=== PATIENT | female | born 1970 | race Caucasian/White ===

== ENCOUNTER → 2017-01-24 | Outpatient (CLI) | payer OTHER ==
[2015-07-06 22:50] VITALS: BP 127/73
[~2017-01-24] MED LIST: AMOX1TAB11 PO; CHOL100017 PO; OMEP20CA9 PO; TIZA4TAB PO
--- NOTE | 2017-01-24 09:40 | RAD ---
Right upper quadrant abdominal ultrasound History: Right upper quadrant pain radiating to the back. Nausea and vomiting. Comparison: None. Technique: Transabdominal ultrasound images are obtained. Findings: Visualized pancreas is unremarkable. Liver is increased in echogenicity. No focal hepatic masses are identified. Right hepatic lobe measures 12.2 cm in length. Gallbladder demonstrate presence of multiple gallstones with largest thought to measure 3.5 cm. Gallbladder wall appears at the upper limits of normal for size, follow-up to measure about 3 mm. No convincing pericholecystic fluid is identified. Common bile duct measures normally at 5 mm in diameter. The right kidney measures 9.6 cm in length and is without evidence of obstruction or stone. Visualized portions of the IVC have normal caliber. Impression: 1. Cholelithiasis. Gallbladder wall appears at the upper limits of normal for size, but no convincing pericholecystic fluid is identified. If there is concern for acute cholecystitis, nuclear medicine hepatobiliary scan could be performed. 2. Fatty liver disease.
== END | disposition home or self-care (01) ==
LOC: US 08:32
PROVIDERS: ATTEND Family Medicine
DX: K80.20 Calculus of gallbladder without cholecystitis without obstruction (principal); K76.0 Fatty (change of) liver, not elsewhere classified
CPT/HCPCS: 76705

== ENCOUNTER 2017-01-27 11:42 | Inpatient (IN) | payer OTHER ==
[~2017-01-27] VITALS: Ht 160 cm; Wt 81.6 kg
[~2017-01-27 11:42] MED LIST changes: -AMOX1TAB11 PO; -OMEP20CA9 PO; -TIZA4TAB PO
[2017-01-27] MEDS ORDERED: MORPHINE SULFATE 4 MG/ML DISP.SYRIN. IV ONE ×2 (12:30→14:15)
[2017-01-27] MEDS ORDERED: IV NORMAL SALINE 1000ML BAG 1,000 ML IV ONE (12:30)
[2017-01-27 12:46] LABS: BASO # 0.1 x10^3/uL (0.0-0.2); BASO % 1 % (0-3); EOS % 3 % (0-3); HEMATOCRIT 41.8 % (36.0-47.0); LYMPH # 2.3 x10^3/uL (1.0-4.8); LYMPH % 27 % (24-48); MEAN CORPUSCULAR HEMOGLOBIN 31 pg (25-35); MEAN CORPUSCULAR HGB CONC 34 g/dL (31-37); MEAN CORPUSCULAR VOLUME 92 fL (79-100); MONO % 6 % (0-9); NEUT % 63 % (31-73); PLATELET COUNT 262 x10^3/uL (140-400); RED BLOOD COUNT 4.56 x10^6/uL (3.50-5.40); RED CELL DISTRIBUTION WIDTH 12.2 % (11.5-14.5); WHITE BLOOD COUNT 8.7 x10^3/uL (4.0-11.0)
[2017-01-27 13:31] LABS: CALCIUM 8.9 mg/dL (8.5-10.1); CREATININE 0.8 mg/dL (0.6-1.0); GFR 77.6; POTASSIUM 3.8 mmol/L (3.5-5.1)
[2017-01-27 13:37] LABS: ALBUMIN 3.5 g/dL (3.4-5.0); ALBUMIN/GLOBULIN RATIO 0.7 (1.0-1.7); TOTAL BILIRUBIN 0.3 mg/dL (0.2-1.0); TOTAL PROTEIN 8.2 g/dL (6.4-8.2)
--- NOTE | 2017-01-27 14:22 | ED.ADGEN ---
Past Medical History Past Medical History: No Pertinent History Past Surgical History: Tubal ligation Alcohol Use: Occasionally Drug Use: None Adult General Chief Complaint Chief Complaint: FLANK PAIN HPI HPI Patient is a 46 year old female presents with intermittent right upper quadrant pain 3 weeks. Pain is been continuous for the past 3 days. Pain radiates to back and is currently rated moderate to severe. Back pain is worse 20 minutes after eating. Patient denies nausea vomiting blood in stools or dark tarry stools. Patient had outpatient gallbladder ultrasound performed 2 days ago which showed large gallstones, without evidence of acute cholecystitis. Patient is also currently being treated on Augmentin for urinary tract infection per her PCP. She takes antacids as well for history of peptic ulcer disease. Patient is currently awaiting referral to a general surgeon. She was instructed by her PCP to go to the emergency department due to her poorly controlled pain. Patient has had prior hysterectomy. Review of Systems Review of Systems View symptoms as per history of present illness. All other review symptoms are negative. Current Medications Current Medications Current Medications Medications (Trade) Dose Ordered Sig/Zulma Start Time Stop Time Status Last Admin Dose Admin Morphine Sulfate 4 mg 4 mg 1X ONCE 01/27/17 14:15 01/27/17 14:16 DC Piperacillin Sod/ Tazobactam Sod/ Sodium Chloride (Zosyn/Iv Sodium Chloride 0.9% 50ml) 50 ml @ 100 mls/hr 1X ONCE 01/27/17 14:30 01/27/17 14:59 Sodium Chloride (Iv Sodium Chloride 0.9% 1000ml Bag) 1,000 ml @ 1,000 mls/hr 1X ONCE 01/27/17 12:30 01/27/17 13:29 DC 01/27/17 12:50 1,000 MLS/HR Allergies Allergies Allergies Coded Allergies Type Severity Reaction Last Updated Verified Sulfa (Sulfonamide Antibiotics) Allergy Intermediate 02/24/14 No Physical Exam Physical Exam Constitutional: Well developed, well nourished, moderate discomfort secondary to pain. HENT: Normocephalic, atraumatic, bilateral external ears normal. Eyes: PERRLA, EOMI, conjunctiva normal. Neck: Normal range of motion. Cardiovascular:Heart rate regular rhythm, no murmur. Lungs & Thorax: Bilateral breath sounds clear to auscultation. Abdomen: Bowel sounds normal, soft, upper quadrant pain, tenderness, positive Otero sign. McBurney's sign. Skin: Warm, dry, no erythema, no rash. Back: No tenderness, no CVA tenderness. Extremities: No tenderness, no cyanosis, no clubbing, ROM intact, no edema. Neurologic: Alert and oriented X 3, normal motor function, normal sensory function, no focal deficits noted. Psychologic: Affect normal, judgement normal, mood normal. Current Patient Data Vital Signs Vital Signs Date Time Temp Pulse Resp B/P Pulse Ox O2 Delivery O2 Flow Rate FiO2 01/27/17 12:58 98.1 71 16 115/71 99 Room Air 98.1 Lab Values Laboratory Tests Test 01/27/17 11:17 01/27/17 12:25 POC Urine HCG, Qualitative Hcg negative (Negative) White Blood Count 8.7x10^3/uL (4.0-11.0) Red Blood Count 4.56x10^6/uL (3.50-5.40) Hemoglobin 14.0g/dL (12.0-15.5) Hematocrit 41.8% (36.0-47.0) Mean Corpuscular Volume 92fL (79-100) Mean Corpuscular Hemoglobin 31pg (25-35) Mean Corpuscular Hemoglobin Concent 34g/dL (31-37) Red Cell Distribution Width 12.2% (11.5-14.5) Platelet Count 262x10^3/uL (140-400) Neutrophils (%) (Auto) 63% (31-73) Lymphocytes (%) (Auto) 27% (24-48) Monocytes (%) (Auto) 6% (0-9) Eosinophils (%) (Auto) 3% (0-3) Basophils (%) (Auto) 1% (0-3) Neutrophils # (Auto) 5.5x10^3uL (1.8-7.7) Lymphocytes # (Auto) 2.3x10^3/uL (1.0-4.8) Monocytes # (Auto) 0.5x10^3/uL (0.0-1.1) Eosinophils # (Auto) 0.2x10^3/uL (0.0-0.7) Basophils # (Auto) 0.1x10^3/uL (0.0-0.2) Sodium Level 137mmol/L (136-145) Potassium Level 3.8mmol/L (3.5-5.1) Chloride Level 105mmol/L (98-107) Carbon Dioxide Level 24mmol/L (21-32) Anion Gap 8 (6-14) Blood Urea Nitrogen 13mg/dL (7-20) Creatinine 0.8mg/dL (0.6-1.0) Estimated GFR (Cockcroft-Gault) 77.6 BUN/Creatinine Ratio 16 (6-20) Glucose Level 93mg/dL (70-99) Calcium Level 8.9mg/dL (8.5-10.1) Total Bilirubin 0.3mg/dL (0.2-1.0) Aspartate Amino Transferase (AST) 18U/L (15-37) Alanine Aminotransferase (ALT) 27U/L (14-59) Alkaline Phosphatase 66U/L (46-116) Total Protein 8.2g/dL (6.4-8.2) Albumin 3.5g/dL (3.4-5.0) Albumin/Globulin Ratio 0.7 (1.0-1.7) L Lipase 181U/L (73-393) Laboratory Tests 01/27/17 12:25 Laboratory Tests 01/27/17 12:25 EKG EKG [] Radiology/Procedures Radiology/Procedures [03/27/17 Gallbladder ultrasound reviewed: Large gallstones present without acute findings of cholecystitis] Impressions: Right upper quadrant pain consistent with biliary colic Course & Med Decision Making Course & Med Decision Making Pertinent Labs and Imaging studies reviewed. (See chart for details) [Dr. Babb to admit. Dr. Juarez consult.. Recommendations are for IV antibiotics and to keep patient nothing by mouth after midnight,] Dragon Disclaimer Dragon Disclaimer This electronic medical record was generated, in whole or in part, using a voice recognition dictation system. RICKY DAS DO January 27, 2017 14:22
[2017-01-27] MEDS ORDERED: MORPHINE SULFATE 2 MG/ML DISP.SYRIN. IV PRN (14:30)
[2017-01-27] MEDS ORDERED: PIPERACILLIN/TAZOBACTAM 3.375 GM in IV NORMAL SALINE 50ML 50 ML IV ONE (14:30)
[2017-01-27] MEDS ORDERED: ONDANSETRON PF 4 MG/2 ML VIAL. IV PRN (14:30)
[2017-01-27 16:04] LABS: BILIRUBIN,URINE NEGATIVE (NEG); GLUCOSE,URINE NEGATIVE (NEG); NITRITE,URINE NEGATIVE (NEG); PH,URINE 5.5; PROTEIN,URINE NEGATIVE (NEG-TRACE); UROBILINOGEN,URINE 0.2 mg/dL (0.2 mg/dL)
[2017-01-27 16:07] VITALS: BP 125/70
[2017-01-27 16:08] VITALS: BP 125/70
[2017-01-27] MEDS ORDERED: OMEP20CA9 PO (16:14)
[2017-01-27] MEDS ORDERED: AMOX1TAB11 PO (16:15)
[2017-01-27] MEDS ORDERED: TIZA4TAB PO (16:17)
[2017-01-27 16:27] LABS: BACTERIA,URINE 0 /HPF (0-FEW); SQUAMOUS EPITHELIAL CELL,UR OCC /LPF
--- NOTE | 2017-01-27 18:14 | ACF ---
Admission Forms Criteria ABDOMINAL PAIN Clinical Indications for Admission to Inpatient Care (Place 'X' for any and all applicable criteria): Admission is indicated for ANY ONE of the following(1)(2)(3)(4)(5): [X]I. Inpatient admission required rather than observation care (Also use Abdominal Pain: Observation Care, as appropriate) because of ANY ONE of the following: [ ]a) Severe pain requiring acute inpatient management [X]b) Identification of etiology/finding that requires inpatient care (eg, aortic dissection, free air) [ ]c) Absent bowel sounds with complete ileus(6) [ ]d) Suspected toxic megacolon [ ]e) Severe electrolyte abnormalities requiring inpatient care [ ]f) High fever or infection requiring inpatient admission as indicated by ANY ONE of following(7)(8): [ ] i) Appropriate outpatient or observational care antimicrobial treatment unavailable, not effective, or not feasible [ ] ii) Documented bacteremia [ ] iii) Temperature > 104.9 degrees F (oral) [ ] iv) T >103.1 F (oral) or < 96.8 F(rectal) that does not respond to all emergency treatment measures [ ]g) Signs of intestinal obstruction [B] [ ]h) Hemodynamic instability [ ]i) IV fluid to replace significant ongoing losses (greater than 3 L/m2 per day) (12)(13) [ ]j) Percutaneous or open drainage (eg, abscess, biliary tract ) procedures [ ]k) Parenteral nutrition regimen that must be implemented on inpatient basis [ ]l) Other condition,treatment or monitoring requiring inpatient admission. [ ]II. Peritoneal signs present [ ]III. Surgery needed that cannot be performed on an ambulatory basis. [ ]IV. Evaluation requires patient to not eat or drink for extended period ( eg, more than 24 hours). [ ]V. Contraindications and/or Inappropriate clinical situations for Observational Care in patients with abdominal pain, when ANY ONE of the following is required: [ ]a) Thorough evaluation is required to prevent catastrophic events due to delays in diagnosing (e.g.Mesenteric ischemia) 1,3 [ ]b) Patient with severe pathology or with chronic symptoms unlikely to improve in the ED stay (3) [ ]. General contraindications and/or Inappropriate clinical situations for Observational Care in patients with abdominal pain, when ANY ONE of the following is required: [ ]a) Prediction of prolongation of LOS based on ANY ONE of the following may be considered as a contraindication for observational care 2, 3, 4, 5, 6, 7, 8, 9, 10, 11 [ ]i) Age > 65 yrs. [ ]ii) Patient arriving by ambulance [ ]iii) Patient with high acuity [ ]iv) Patient requiring vital sign monitoring [ ]v) Patient on IV medication [ ]b) Systolic blood pressures 180mmHg 3,12 [ ]c) Patient with altered mental status including delirium and other alteration of consciousness, (3) [ ]d) Patient whose discharge disposition will be to a senior care home or rehabilitation home should not be managed in Emergency Department Observation Unit. CMS rule requires 3 days hospital stay before such placement.3,13 [ ]e) Patient with failure to thrive due to broad array of etiologies 3,16,17 [ ]f) Inability to ambulate 3,14 Extended stay beyond goal length of stay may be needed for(2)(3): [ ]a) Persistent abdominal pain with suspected intra-abdominal process [ ]b) Diagnosed condition requiring continued stay (e.g., pancreatitis, complicated diverticulitis) [ ]c) Surgery (e.g., colectomy) The original [facility] content created by [employer] has been revised. The portions of the content which have been revised are identified through the use of italic text or in bold, and [facility] has neither reviewed nor approved the modified material.All other unmodified content is copyright [facility]. Please see references footnoted in the original [facility] [employer] edition 2016 Admission Criteria Met?: Yes CHAMP COSME January 27, 2017 18:13
[2017-01-27] MEDS: IV NORMAL SALINE 1000ML BAG 1,000 ML IV SCH ×2 (18:35→22:23)
[2017-01-27 19:05] VITALS: BP 100/68
[2017-01-27 23:05] VITALS: BP 117/79
[2017-01-28] VITALS (12 sets, daily range): BP systolic 100–127; BP diastolic 62–86
[2017-01-28] MEDS: IV NORMAL SALINE 1000ML BAG 1,000 ML IV SCH (03:30)
[2017-01-28] MEDS ORDERED: IOHEXOL 300 MG/ML 50 ML VIAL. ONE (06:53)
[2017-01-28] MEDS ORDERED: BUPIVACAINE-EPI 0.25%-1:200000 MPF 30 ML VIAL. ONE (06:53)
[2017-01-28] MEDS ORDERED: SURGICEL HEMOSTAT 4X8 EACH. ONE (06:53)
[2017-01-28] MEDS ORDERED: PROCHLORPERAZINE 10 MG/2 ML VIAL. IV PRN (07:00)
[2017-01-28] MEDS ORDERED: fentaNYL PF VIAL 100 MCG/2 ML VIAL IV PRN (07:00)
[2017-01-28] MEDS ORDERED: MORPHINE SULFATE 2 MG/ML DISP.SYRIN. IV PRN (07:00)
[2017-01-28] MEDS ORDERED: HYDROmorphone 2 MG/ML VIAL IV PRN (07:00)
[2017-01-28] MEDS ORDERED: IV RINGERS,LACTATED 1000ML 1,000 ML IV SCH (07:00)
[2017-01-28] MEDS ORDERED: LIDOCAINE 1% 1 ML SYRINGE. ID PRN (07:00)
[2017-01-28] MEDS ORDERED: ONDANSETRON PF 4 MG/2 ML VIAL. IV PRN (07:00)
--- NOTE | 2017-01-28 08:43 | PDOC1 ---
History and Physical Date of Admission Date of Admission DATE: 01/28/17 TIME: 08:25 Identification/Chief Complaint Chief Complaint abdominal pain, recently found to have gallstones Problems: Source Source: Patient History of Present Illness History of Present Illness several week history of epigastric and upper quadrant abdominal pain, came to office a week ago and exam consistent with gallbladder etiology, ultrasound ordered but not done until Wednesday 01/24 which confirmed gallstones but did not confirm acute cholecystitis, surgical referral made along with PIPIDA scan but she presented to ER yesterday with pain and admitted with acute /chronic cholecystitis for surgery. She was also diagnosed with a UTI and is on antibiotics Past Medical History Cardiovascular: No pertinent hx Pulmonary: No pertinent hx GI: Constipation, GERD Heme/Onc: No pertinent hx Hepatobiliary: No pertinent hx Psych: Depression Musculoskeletal: No pain Rheumatologic: No pertinent hx Infectious disease: No pertinent hx ENT: Other (cleft palate repair) Renal/: No pertinent hx Endocrine: No pertinent hx Dermatology: No pertinent hx Grav: 2 Para: 2 Past Surgical History Past Surgical History: Hysterectomy, Other (cleft palate repair, tubes in ears) Social History Smoke: No ALCOHOL: rare Drugs: None Current Problem List Problem List Problems Medical Problems: (1) Abdominal pain Status: Acute (2) Biliary colic Status: Acute (3) Right upper quadrant abdominal pain Status: Acute Problems: Current Medications Current Medications Current Medications Sodium Chloride (Iv Sodium Chloride 0.9% 1000ml Bag) 1,000 ml @ 1,000 mls/hr 1X ONCE IV Last administered on 01/27/17 12:50; Start 01/27/17 at 12:30; Stop 01/27/17 at 13:29; Status DC Morphine Sulfate 4 mg 1X ONCE IV Last administered on 01/27/17 12:50; Start at 12:30; Stop 01/27/17 at 12:33; Status DC Morphine Sulfate 4 mg 4 mg 1X ONCE IV Last administered on 01/27/17 14:28; Start 01/27/17 at 14:15; Stop 01/27/17 at 14:16; Status DC Piperacillin Sod/ Tazobactam Sod/ Sodium Chloride (Zosyn/Iv Sodium Chloride 0.9 % 50ml) 50 ml @ 100 mls/hr 1X ONCE IV Last administered on 01/27/17 14:28; Start 01/27/17 at 14:30; Stop 01/27/17 at 14:59; Status DC Ondansetron HCl (Zofran) 4 mg PRN Q8HRS PRN IV NAUSEA/VOMITING Last administered on 01/28/17 00:35; Start 01/27/17 at 14:30; Stop 01/28/17 at 14:29 Morphine Sulfate 2 mg 2 mg PRN Q2HR PRN IV PAIN Last administered on 01/27/17 18:35; Start 01/27/17 at 14:30; Stop 01/28/17 at 14:29 Sodium Chloride (Iv Sodium Chloride 0.9% 1000ml Bag) 1,000 ml @ 125 mls/hr Q8H IV Last administered on 01/28/17 03:30; Start 01/27/17 at 14:23; Stop 01/28/17 at 14:22 Ondansetron HCl (Zofran) 4 mg PRN Q6HRS PRN IV NAUSEA/VOMITING; Start 01/28/17 at 07:00; Stop 01/29/17 at 06:59 Fentanyl Citrate (Fentanyl 2ml Vial) 25 mcg PRN Q5MIN PRN IV MILD PAIN; Start 01/28/17 at 07:00; Stop 01/29/17 at 06:59 Fentanyl Citrate (Fentanyl 2ml Vial) 50 mcg PRN Q5MIN PRN IV MODERATE PAIN; Start 01/28/17 at 07:00; Stop 01/29/17 at 06:59 Morphine Sulfate 1 mg 1 mg PRN Q10MIN PRN IV SEVERE PAIN; Start 01/28/17 at 07: 00; Stop 01/29/17 at 06:59 Lactated Ringer's (Iv Lactated Ringers) 1,000 ml @ 0 mls/hr Q0M IV ; Start 01/28 at 07:00; Stop 01/28/17 at 18:59 Lidocaine HCl 2 ml PRN 1X PRN ID PRIOR TO IV START; Start 01/28/17 at 07:00; Stop 01/29/17 at 06:59 Hydromorphone HCl (Dilaudid) 0.5 mg PRN Q10MIN PRN IV SEV PAIN, Second choice; Start 01/28/17 at 07:00; Stop 01/29/17 at 06:59 Prochlorperazine Edisylate (Compazine) 5 mg PACU PRN PRN IV NAUSEA, MRX1; Start 01/28/17 at 07:00; Stop 01/29/17 at 06:59 Cellulose 1 each STK-MED ONCE .ROUTE ; Start 01/28/17 at 06:53; Stop 01/28/17 at 06:54; Status DC Iohexol (Omnipaque 300 Mg/ml) 50 ml STK-MED ONCE .ROUTE ; Start 01/28/17 at 06:53 ; Stop 01/28/17 at 06:54; Status DC Bupivacaine HCl/ Epinephrine Bitart (Sensorcaine-Epi 0.25%-1:693256 Mpf) 30 ml STK-MED ONCE .ROUTE ; Start 01/28/17 at 06:53; Stop 01/28/17 at 06:54; Status DC Active Scripts Active Reported Tizanidine Hcl 4 Mg Tablet 1 Tab PO QHS Amox Tr-K Clv 875-125 Mg Tab (Amoxicillin/Potassium Clav) 1 Each Tablet 1 Tab PO BID Omeprazole 20 Mg Capsule.dr 1 Cap PO DAILY Vitamin D (Cholecalciferol (Vitamin D3)) 10,000 Unit Capsule 50,000 Unit PO DAILY Allergies Allergies: Coded Allergies: Sulfa (Sulfonamide Antibiotics) (Unverified Allergy, Intermediate, 02/24/14 ) ROS General: No: Fatigue, Malaise, Night Sweats PSYCHOLOGICAL ROS: YES: Anxiety, Depression Eyes: No Blurry vision, No Decreased vision, No Double vision, No Dry eyes, No Excessive tearing, No Eye Pain, No Itchy Eyes, No Loss of vision, No Photophobia , No Scotomata, No Uses contacts, No Uses glasses HEENT: YES: Heacaches, Nasal congestion ALLERGY AND IMMUNOLOGY: No: Hives, Insect Bite Sensitivity, Itchy/Watery Eyes, Nasal Congestion, Post Nasal Drip, Seasonal Allergies Hematological and Lymphatic: No: Bleeding Problems, Blood Clots, Blood Transfusions, Brusing, Night Sweats, Pallor, Swollen Lymph Nodes ENDOCRINE: No: Breast Changes, Galactorrhea, Hair Pattern Changes, Hot Flashes , Malaise/lethargy, Mood Swings, Palpitations, Polydipsia/polyuria, Skin Changes , Temperature Intolerance, Unexpected Weight Changes Breast: No New/Changing Breast Lumps, No Nipple changes, No Nipple discharge Respiratory: No: Cough, Hemoptysis, Orthopnea, Pleuritic Pain, SOB with excertion, Shortness of breath, Sputum Changes, Stridor, Tachypnea, Wheezing Cardiovascular: No Chest Pain, No Edema, No Lt Headedness, No Orthopnea, No Palpitations, No Paroxysmal Noc. Dyspnea Musculoskeletal: No Gait Disturbance, No Joint Pain, No Joint Stiffness, No Joint Swelling, No Muscle Pain, No Muscular Weakness Neurological: No Behavorial Changes, No Bowel/Bladder ControlChng, No Confusion , No Dizziness, No Gait Disturbance, No Headaches, No Impaired Coord/balance, No Memory Loss, No Numbness/Tingling, No Seizures, No Speech Problems, No Tremors, No Visual Changes, No Weakness Skin: No Dry Skin, No Eczema, No Hair Changes, No Lumps, No Mole Changes, No Mottling, No Nail Changes, No Pruritus, No Rash, No Skin Lesion Changes Physical Exam General: Alert, Oriented X3, Cooperative, mild distress HEENT: Atraumatic, EOMI, Mucous membr. moist/pink Lungs: Clear to auscultation Heart: RRR, no murmurs Abdomen: Soft, No hepatosplenomegaly, Other (ROQ tenderness, mild bloating) Extremities: No clubbing, No cyanosis, No edema Skin: No rashes Neuro: Normal speech Psych/Mental Status: Mental status NL, Mood NL Vitals Vitals Vital Signs Date Time Temp Pulse Resp B/P Pulse Ox O2 Delivery O2 Flow Rate FiO2 01/28/17 07:00 97.6 69 18 106/70 98 Room Air 97.6 Labs Labs Laboratory Tests Test 01/27/17 11:17 01/27/17 12:10 01/27/17 12:25 Bedside Urine HCG, Qualitative Hcg negative (Negative) Urine Color Yellow Urine Clarity Clear Urine pH 5.5 Urine Specific [place] 1.020 Urine Protein Negativemg/dL (NEG-TRACE) Urine Glucose (UA) Negativemg/dL (NEG) Urine Ketones (Stick) Negativemg/dL (NEG) Urine Blood Small (NEG) Urine Nitrite Negative (NEG) Urine Bilirubin Negative (NEG) Urine Urobilinogen Dipstick 0.2mg/dL (0.2 mg/dL) Urine Leukocyte Esterase Trace (NEG) Urine RBC 1-2/HPF (0-2) Urine WBC 1-4/HPF (0-4) Urine Squamous Epithelial Cells Occ/LPF Urine Amorphous Sediment Present/HPF Urine Bacteria 0/HPF (0-FEW) Urine Mucus Slight/LPF White Blood Count 8.7x10^3/uL (4.0-11.0) Red Blood Count 4.56x10^6/uL (3.50-5.40) Hemoglobin 14.0g/dL (12.0-15.5) Hematocrit 41.8% (36.0-47.0) Mean Corpuscular Volume 92fL (79-100) Mean Corpuscular Hemoglobin 31pg (25-35) Mean Corpuscular Hemoglobin Concent 34g/dL (31-37) Red Cell Distribution Width 12.2% (11.5-14.5) Platelet Count 262x10^3/uL (140-400) Neutrophils (%) (Auto) 63% (31-73) Lymphocytes (%) (Auto) 27% (24-48) Monocytes (%) (Auto) 6% (0-9) Eosinophils (%) (Auto) 3% (0-3) Basophils (%) (Auto) 1% (0-3) Neutrophils # (Auto) 5.5x10^3uL (1.8-7.7) Lymphocytes # (Auto) 2.3x10^3/uL (1.0-4.8) Monocytes # (Auto) 0.5x10^3/uL (0.0-1.1) Eosinophils # (Auto) 0.2x10^3/uL (0.0-0.7) Basophils # (Auto) 0.1x10^3/uL (0.0-0.2) Sodium Level 137mmol/L (136-145) Potassium Level 3.8mmol/L (3.5-5.1) Chloride Level 105mmol/L (98-107) Carbon Dioxide Level 24mmol/L (21-32) Anion Gap 8 (6-14) Blood Urea Nitrogen 13mg/dL (7-20) Creatinine 0.8mg/dL (0.6-1.0) Estimated GFR (Cockcroft-Gault) 77.6 BUN/Creatinine Ratio 16 (6-20) Glucose Level 93mg/dL (70-99) Calcium Level 8.9mg/dL (8.5-10.1) Total Bilirubin 0.3mg/dL (0.2-1.0) Aspartate Amino Transf (AST/SGOT) 18U/L (15-37) Alanine Aminotransferase (ALT/SGPT) 27U/L (14-59) Alkaline Phosphatase 66U/L (46-116) Total Protein 8.2g/dL (6.4-8.2) Albumin 3.5g/dL (3.4-5.0) Albumin/Globulin Ratio 0.7 (1.0-1.7) Lipase 181U/L (73-393) Laboratory Tests Test 01/27/17 11:17 01/27/17 12:10 01/27/17 12:25 Bedside Urine HCG, Qualitative Hcg negative (Negative) Urine Color Yellow Urine Clarity Clear Urine pH 5.5 Urine Specific [place] 1.020 Urine Protein Negativemg/dL (NEG-TRACE) Urine Glucose (UA) Negativemg/dL (NEG) Urine Ketones (Stick) Negativemg/dL (NEG) Urine Blood Small (NEG) Urine Nitrite Negative (NEG) Urine Bilirubin Negative (NEG) Urine Urobilinogen Dipstick 0.2mg/dL (0.2 mg/dL) Urine Leukocyte Esterase Trace (NEG) Urine RBC 1-2/HPF (0-2) Urine WBC 1-4/HPF (0-4) Urine Squamous Epithelial Cells Occ/LPF Urine Amorphous Sediment Present/HPF Urine Bacteria 0/HPF (0-FEW) Urine Mucus Slight/LPF White Blood Count 8.7x10^3/uL (4.0-11.0) Red Blood Count 4.56x10^6/uL (3.50-5.40) Hemoglobin 14.0g/dL (12.0-15.5) Hematocrit 41.8% (36.0-47.0) Mean Corpuscular Volume 92fL (79-100) Mean Corpuscular Hemoglobin 31pg (25-35) Mean Corpuscular Hemoglobin Concent 34g/dL (31-37) Red Cell Distribution Width 12.2% (11.5-14.5) Platelet Count 262x10^3/uL (140-400) Neutrophils (%) (Auto) 63% (31-73) Lymphocytes (%) (Auto) 27% (24-48) Monocytes (%) (Auto) 6% (0-9) Eosinophils (%) (Auto) 3% (0-3) Basophils (%) (Auto) 1% (0-3) Neutrophils # (Auto) 5.5x10^3uL (1.8-7.7) Lymphocytes # (Auto) 2.3x10^3/uL (1.0-4.8) Monocytes # (Auto) 0.5x10^3/uL (0.0-1.1) Eosinophils # (Auto) 0.2x10^3/uL (0.0-0.7) Basophils # (Auto) 0.1x10^3/uL (0.0-0.2) Sodium Level 137mmol/L (136-145) Potassium Level 3.8mmol/L (3.5-5.1) Chloride Level 105mmol/L (98-107) Carbon Dioxide Level 24mmol/L (21-32) Anion Gap 8 (6-14) Blood Urea Nitrogen 13mg/dL (7-20) Creatinine 0.8mg/dL (0.6-1.0) Estimated GFR (Cockcroft-Gault) 77.6 BUN/Creatinine Ratio 16 (6-20) Glucose Level 93mg/dL (70-99) Calcium Level 8.9mg/dL (8.5-10.1) Total Bilirubin 0.3mg/dL (0.2-1.0) Aspartate Amino Transf (AST/SGOT) 18U/L (15-37) Alanine Aminotransferase (ALT/SGPT) 27U/L (14-59) Alkaline Phosphatase 66U/L (46-116) Total Protein 8.2g/dL (6.4-8.2) Albumin 3.5g/dL (3.4-5.0) Albumin/Globulin Ratio 0.7 (1.0-1.7) Lipase 181U/L (73-393) Images Images Impression: 1. Cholelithiasis. Gallbladder wall appears at the upper limits of normal for size, but no convincing pericholecystic fluid is identified. If there is concern for acute cholecystitis, nuclear medicine hepatobiliary scan could be performed. 2. Fatty liver disease. VTE Prophylaxis Ordered VTE Prophylaxis Devices: No VTE Pharmacological Prophylaxi: No Assessment/Plan Assessment/Plan acute cholecystitis, consent given for SHAN Boyd MD January 28, 2017 08:43
--- NOTE | 2017-01-28 08:48 | PDOC2 ---
CONSULT Date of Consult Date of Consult DATE: 01/28/17 TIME: 08:43 Reason for Consult Reason for Consult: Abd pain Referring Physician Referring Physician: Identification/Chief Complaint Chief Complaint Abdominal pain Source Source: Patient History of Present Illness Reason for Visit: 46 yo female with intermitent abdominal pain right side for several months. Most recently pain has been constant and sharp in the RUQ with nausea and worse after eating. Recent U/S showed gallstones. Denies any fever or vomiting. Past Medical History Cardiovascular: No pertinent hx Pulmonary: No pertinent hx GI: No pertinent hx Heme/Onc: No pertinent hx Hepatobiliary: Cholelithiasis Psych: No pertinent hx Rheumatologic: No pertinent hx Infectious disease: No pertinent hx ENT: No pertinent hx Renal/: No pertinent hx Endocrine: No pertinent hx Dermatology: No pertinent hx Past Surgical History Past Surgical History: Hysterectomy Family History Family History: No Significant Social History No ALCOHOL: none Drugs: None Lives: with Family Current Problem List Problem List Problems Medical Problems: (1) Abdominal pain Status: Acute (2) Biliary colic Status: Acute (3) Right upper quadrant abdominal pain Status: Acute Current Medications Current Medications Current Medications Sodium Chloride (Iv Sodium Chloride 0.9% 1000ml Bag) 1,000 ml @ 1,000 mls/hr 1X ONCE IV Last administered on 01/27/17 12:50; Start 01/27/17 at 12:30; Stop 01/27/17 at 13:29; Status DC Morphine Sulfate 4 mg 1X ONCE IV Last administered on 01/27/17 12:50; Start at 12:30; Stop 01/27/17 at 12:33; Status DC Morphine Sulfate 4 mg 4 mg 1X ONCE IV Last administered on 01/27/17 14:28; Start 01/27/17 at 14:15; Stop 01/27/17 at 14:16; Status DC Piperacillin Sod/ Tazobactam Sod/ Sodium Chloride (Zosyn/Iv Sodium Chloride 0.9 % 50ml) 50 ml @ 100 mls/hr 1X ONCE IV Last administered on 01/27/17 14:28; Start 01/27/17 at 14:30; Stop 01/27/17 at 14:59; Status DC Ondansetron HCl (Zofran) 4 mg PRN Q8HRS PRN IV NAUSEA/VOMITING Last administered on 01/28/17 00:35; Start 01/27/17 at 14:30; Stop 01/28/17 at 14:29 Morphine Sulfate 2 mg 2 mg PRN Q2HR PRN IV PAIN Last administered on 01/27/17 18:35; Start 01/27/17 at 14:30; Stop 01/28/17 at 14:29 Sodium Chloride (Iv Sodium Chloride 0.9% 1000ml Bag) 1,000 ml @ 125 mls/hr Q8H IV Last administered on 01/28/17 03:30; Start 01/27/17 at 14:23; Stop 01/28/17 at 14:22 Ondansetron HCl (Zofran) 4 mg PRN Q6HRS PRN IV NAUSEA/VOMITING; Start 01/28/17 at 07:00; Stop 01/29/17 at 06:59 Fentanyl Citrate (Fentanyl 2ml Vial) 25 mcg PRN Q5MIN PRN IV MILD PAIN; Start 01/28/17 at 07:00; Stop 01/29/17 at 06:59 Fentanyl Citrate (Fentanyl 2ml Vial) 50 mcg PRN Q5MIN PRN IV MODERATE PAIN; Start 01/28/17 at 07:00; Stop 01/29/17 at 06:59 Morphine Sulfate 1 mg 1 mg PRN Q10MIN PRN IV SEVERE PAIN; Start 01/28/17 at 07: 00; Stop 01/29/17 at 06:59 Lactated Ringer's (Iv Lactated Ringers) 1,000 ml @ 0 mls/hr Q0M IV ; Start 01/28 at 07:00; Stop 01/28/17 at 18:59 Lidocaine HCl 2 ml PRN 1X PRN ID PRIOR TO IV START; Start 01/28/17 at 07:00; Stop 01/29/17 at 06:59 Hydromorphone HCl (Dilaudid) 0.5 mg PRN Q10MIN PRN IV SEV PAIN, Second choice; Start 01/28/17 at 07:00; Stop 01/29/17 at 06:59 Prochlorperazine Edisylate (Compazine) 5 mg PACU PRN PRN IV NAUSEA, MRX1; Start 01/28/17 at 07:00; Stop 01/29/17 at 06:59 Cellulose 1 each STK-MED ONCE .ROUTE ; Start 01/28/17 at 06:53; Stop 01/28/17 at 06:54; Status DC Iohexol (Omnipaque 300 Mg/ml) 50 ml STK-MED ONCE .ROUTE ; Start 01/28/17 at 06:53 ; Stop 01/28/17 at 06:54; Status DC Bupivacaine HCl/ Epinephrine Bitart (Sensorcaine-Epi 0.25%-1:146503 Mpf) 30 ml STK-MED ONCE .ROUTE ; Start 01/28/17 at 06:53; Stop 01/28/17 at 06:54; Status DC Active Scripts Active Reported Tizanidine Hcl 4 Mg Tablet 1 Tab PO QHS Amox Tr-K Clv 875-125 Mg Tab (Amoxicillin/Potassium Clav) 1 Each Tablet 1 Tab PO BID Omeprazole 20 Mg Capsule.dr 1 Cap PO DAILY Vitamin D (Cholecalciferol (Vitamin D3)) 10,000 Unit Capsule 50,000 Unit PO DAILY Allergies Allergies: Coded Allergies: Sulfa (Sulfonamide Antibiotics) (Unverified Allergy, Intermediate, 02/24/14 ) ROS HEENT: YES: Heacaches Gastrointestinal: Yes Abdominal Pain, Yes Nausea Physical Exam General: Alert, Oriented X3, Cooperative, mild distress HEENT: Atraumatic, PERRLA, EOMI Lungs: Clear to auscultation, Normal air movement Heart: Regular rate, No murmurs Abdomen: Normal bowel sounds, Soft, Other (TTP RUQ) Extremities: No edema Skin: No significant lesion Neuro: Normal speech Vitals VITALS Vital Signs Date Time Temp Pulse Resp B/P Pulse Ox O2 Delivery O2 Flow Rate FiO2 01/28/17 07:00 97.6 69 18 106/70 98 Room Air 97.6 Labs Labs Laboratory Tests Test 01/27/17 11:17 01/27/17 12:10 01/27/17 12:25 Bedside Urine HCG, Qualitative Hcg negative (Negative) Urine Color Yellow Urine Clarity Clear Urine pH 5.5 Urine Specific [place] 1.020 Urine Protein Negativemg/dL (NEG-TRACE) Urine Glucose (UA) Negativemg/dL (NEG) Urine Ketones (Stick) Negativemg/dL (NEG) Urine Blood Small (NEG) Urine Nitrite Negative (NEG) Urine Bilirubin Negative (NEG) Urine Urobilinogen Dipstick 0.2mg/dL (0.2 mg/dL) Urine Leukocyte Esterase Trace (NEG) Urine RBC 1-2/HPF (0-2) Urine WBC 1-4/HPF (0-4) Urine Squamous Epithelial Cells Occ/LPF Urine Amorphous Sediment Present/HPF Urine Bacteria 0/HPF (0-FEW) Urine Mucus Slight/LPF White Blood Count 8.7x10^3/uL (4.0-11.0) Red Blood Count 4.56x10^6/uL (3.50-5.40) Hemoglobin 14.0g/dL (12.0-15.5) Hematocrit 41.8% (36.0-47.0) Mean Corpuscular Volume 92fL (79-100) Mean Corpuscular Hemoglobin 31pg (25-35) Mean Corpuscular Hemoglobin Concent 34g/dL (31-37) Red Cell Distribution Width 12.2% (11.5-14.5) Platelet Count 262x10^3/uL (140-400) Neutrophils (%) (Auto) 63% (31-73) Lymphocytes (%) (Auto) 27% (24-48) Monocytes (%) (Auto) 6% (0-9) Eosinophils (%) (Auto) 3% (0-3) Basophils (%) (Auto) 1% (0-3) Neutrophils # (Auto) 5.5x10^3uL (1.8-7.7) Lymphocytes # (Auto) 2.3x10^3/uL (1.0-4.8) Monocytes # (Auto) 0.5x10^3/uL (0.0-1.1) Eosinophils # (Auto) 0.2x10^3/uL (0.0-0.7) Basophils # (Auto) 0.1x10^3/uL (0.0-0.2) Sodium Level 137mmol/L (136-145) Potassium Level 3.8mmol/L (3.5-5.1) Chloride Level 105mmol/L (98-107) Carbon Dioxide Level 24mmol/L (21-32) Anion Gap 8 (6-14) Blood Urea Nitrogen 13mg/dL (7-20) Creatinine 0.8mg/dL (0.6-1.0) Estimated GFR (Cockcroft-Gault) 77.6 BUN/Creatinine Ratio 16 (6-20) Glucose Level 93mg/dL (70-99) Calcium Level 8.9mg/dL (8.5-10.1) Total Bilirubin 0.3mg/dL (0.2-1.0) Aspartate Amino Transf (AST/SGOT) 18U/L (15-37) Alanine Aminotransferase (ALT/SGPT) 27U/L (14-59) Alkaline Phosphatase 66U/L (46-116) Total Protein 8.2g/dL (6.4-8.2) Albumin 3.5g/dL (3.4-5.0) Albumin/Globulin Ratio 0.7 (1.0-1.7) Lipase 181U/L (73-393) Laboratory Tests Test 01/27/17 11:17 01/27/17 12:10 01/27/17 12:25 Bedside Urine HCG, Qualitative Hcg negative (Negative) Urine Color Yellow Urine Clarity Clear Urine pH 5.5 Urine Specific [place] 1.020 Urine Protein Negativemg/dL (NEG-TRACE) Urine Glucose (UA) Negativemg/dL (NEG) Urine Ketones (Stick) Negativemg/dL (NEG) Urine Blood Small (NEG) Urine Nitrite Negative (NEG) Urine Bilirubin Negative (NEG) Urine Urobilinogen Dipstick 0.2mg/dL (0.2 mg/dL) Urine Leukocyte Esterase Trace (NEG) Urine RBC 1-2/HPF (0-2) Urine WBC 1-4/HPF (0-4) Urine Squamous Epithelial Cells Occ/LPF Urine Amorphous Sediment Present/HPF Urine Bacteria 0/HPF (0-FEW) Urine Mucus Slight/LPF White Blood Count 8.7x10^3/uL (4.0-11.0) Red Blood Count 4.56x10^6/uL (3.50-5.40) Hemoglobin 14.0g/dL (12.0-15.5) Hematocrit 41.8% (36.0-47.0) Mean Corpuscular Volume 92fL (79-100) Mean Corpuscular Hemoglobin 31pg (25-35) Mean Corpuscular Hemoglobin Concent 34g/dL (31-37) Red Cell Distribution Width 12.2% (11.5-14.5) Platelet Count 262x10^3/uL (140-400) Neutrophils (%) (Auto) 63% (31-73) Lymphocytes (%) (Auto) 27% (24-48) Monocytes (%) (Auto) 6% (0-9) Eosinophils (%) (Auto) 3% (0-3) Basophils (%) (Auto) 1% (0-3) Neutrophils # (Auto) 5.5x10^3uL (1.8-7.7) Lymphocytes # (Auto) 2.3x10^3/uL (1.0-4.8) Monocytes # (Auto) 0.5x10^3/uL (0.0-1.1) Eosinophils # (Auto) 0.2x10^3/uL (0.0-0.7) Basophils # (Auto) 0.1x10^3/uL (0.0-0.2) Sodium Level 137mmol/L (136-145) Potassium Level 3.8mmol/L (3.5-5.1) Chloride Level 105mmol/L (98-107) Carbon Dioxide Level 24mmol/L (21-32) Anion Gap 8 (6-14) Blood Urea Nitrogen 13mg/dL (7-20) Creatinine 0.8mg/dL (0.6-1.0) Estimated GFR (Cockcroft-Gault) 77.6 BUN/Creatinine Ratio 16 (6-20) Glucose Level 93mg/dL (70-99) Calcium Level 8.9mg/dL (8.5-10.1) Total Bilirubin 0.3mg/dL (0.2-1.0) Aspartate Amino Transf (AST/SGOT) 18U/L (15-37) Alanine Aminotransferase (ALT/SGPT) 27U/L (14-59) Alkaline Phosphatase 66U/L (46-116) Total Protein 8.2g/dL (6.4-8.2) Albumin 3.5g/dL (3.4-5.0) Albumin/Globulin Ratio 0.7 (1.0-1.7) Lipase 181U/L (73-393) Images Images U/S done at outside facility reports gallstones Assessment/Plan Assessment/Plan Symptomatic cholelithiasis Plan L/S Cholecystectomy today LAI SOFIA MD January 28, 2017 08:48
[2017-01-28] MEDS ORDERED: LIDOCAINE 2% 100 MG/5 ML SYRINGE. ONE (11:16)
[2017-01-28] MEDS ORDERED: DEXAMETHASONE SOD PHOS 20 MG/5 ML VIAL. ONE (11:16)
[2017-01-28] MEDS ORDERED: ONDANSETRON PF 4 MG/2 ML VIAL. ONE (11:16)
[2017-01-28] MEDS ORDERED: PROPOFOL 20 ML IV ONE ×2 (11:16→14:03)
[2017-01-28] MEDS ORDERED: ROCURONIUM 50 MG/5 ML VIAL. ONE (11:17)
[2017-01-28] MEDS ORDERED: fentaNYL PF VIAL 100 MCG/2 ML VIAL ONE ×2 (12:25→13:54)
[2017-01-28] MEDS ORDERED: SCOPOLAMINE 1.5MG PATCH. TD SCH (12:30)
[2017-01-28] MEDS: IV RINGERS,LACTATED 1000ML 1,000 ML IV SCH (12:33)
[2017-01-28] MEDS ORDERED: SUCCINYLCHOLINE 200 MG/10 ML VIAL. ONE (13:04)
[2017-01-28] MEDS ORDERED: SUGAMMADEX SODIUM 200 MG/2 ML VIAL. IVP ONE (13:50)
--- NOTE | 2017-01-28 14:09 | PDOC ---
BRIEF OPERATIVE NOTE Date: January 28, 2017 Pre-Op Diagnosis Cholelithiasis Post-Op Diagnosis Same Procedure Performed L/S Cholecystectomy Surgeon Larry Anesthesia Type: General Blood Loss 20ml Specimens Obtained Gallbladder Findings as above LAI SOFIA MD January 28, 2017 14:09
[2017-01-28] MEDS: fentaNYL PF VIAL 100 MCG/2 ML VIAL IV PRN ×2 (14:40→14:53)
[2017-01-28] MEDS ORDERED: OXYCODONE/APAP 5/325 TABLET. PO PRN (15:00)
[2017-01-28] MEDS: OXYCODONE/APAP 5/325 TABLET. PO PRN ×2 (16:24→21:09)
[2017-01-28] MEDS: PANTOPRAZOLE 40 MG TABLET.DR. PO SCH (16:25)
[2017-01-28] MEDS: AMOXICILLIN/K CLAV 875/125MG TABLET. PO SCH ×2 (16:25→21:09)
--- NOTE | 2017-01-28 17:56 | OP ---
DATE OF SURGERY: 01/28/2017 PREOPERATIVE DIAGNOSIS: Symptomatic cholelithiasis. POSTOPERATIVE DIAGNOSIS: Symptomatic cholelithiasis. PROCEDURE: Laparoscopic cholecystectomy. SURGEON: Justyn Sofia M.D. INDICATIONS: The patient is a 46-year-old female who has had intermittent right upper quadrant abdominal pain for 3 months. Over the last week it has gotten significantly worse ____ she was brought to the Emergency Department. She also had an ultrasound done, which showed some large stones within the gallbladder. Procedure of laparoscopic cholecystectomy was explained to the patient in detail. Risks, benefits were also discussed including bleeding, infection, injury to intra-abdominal contents, possibly necessitating further open operations. Alternatives of this procedure were also discussed with the patient who seemed to understand and gave verbal and written consent to have the procedure performed. DESCRIPTION OF PROCEDURE: The patient was taken to the operating room and placed in the supine position, general anesthesia was initiated. Once the patient was asleep and intubated, her abdomen was prepped and draped in usual sterile fashion using ChloraPrep. An area just above the umbilicus injected 0.25% Marcaine with epinephrine. Incision was made with an 11 blade scalpel and a Veress needle was placed within the abdomen. Pneumoperitoneum was achieved. Once this was complete, an 11 mm port was placed and a 5 mm camera was placed within the abdomen. The abdomen was inspected. No other abnormalities were noted. At this point, three 5 mm ports were placed, one in the epigastrium, 2 in the right upper quadrant. The dome of the gallbladder was grasped and retracted cephalad. The infundibulum of the gallbladder was grasped and retracted laterally exposing the triangle of Calot. Adherent tissues of the triangle were taken down with blunt dissection exposing the cystic duct, which was doubly clipped and transected. Cystic artery was also visualized, which was clipped and transected. The gallbladder was taken off the liver with hook electrocautery, placed in EndoCatch bag and removed from the umbilicus. Right upper quadrant was irrigated and suctioned dry. Hemostasis seemed to be appropriate and the pneumoperitoneum was reduced. All ports were removed. Fascial defect at the umbilicus closed with [id number] 0 Vicryl suture and the skin was reapproximated at all port sites with 4-0 subcuticular Monocryl. Mastisol, Steri-Strips and Band-Aids were applied as dressings. The patient was awakened, extubated in the operating room, taken to recovery in stable condition. All sponge, instrument counts listed as correct. Estimated blood loss 20 mL. JUSTYN SOFIA MD DR: NANO/tika JOB#: [id number] / [id number] ecc Finn Babb M.D.
[2017-01-28] MEDS ORDERED: tiZANidine 4 MG TABLET. PO SCH (21:00)
[2017-01-29 03:09] VITALS: BP 95/58
[2017-01-29] MEDS: IV RINGERS,LACTATED 1000ML 1,000 ML IV SCH (06:08)
[2017-01-29 07:00] VITALS: BP 102/61
--- NOTE | 2017-01-29 08:01 | PDOC ---
SURGICAL PROGRESS NOTE Subjective Doing well, tolerated diet. Having some soreness Vital Signs Vital Signs Date Time Temp Pulse Resp B/P Pulse Ox O2 Delivery O2 Flow Rate FiO2 01/29/17 07:00 98.1 64 18 102/61 93 Room Air 98.1 01/28/17 15:16 2 I&O Intake and Output 01/29/17 07:00 Intake Total 1550 ml Output Total 1710 ml Balance -160 ml Intake Oral 300 ml IV Total 1250 ml Output Urine Total 1700 ml Estimated Blood Loss 10 ml PATIENT HAS A CHEN: No General: Alert, Oriented X3, Cooperative, No acute distress Abdomen: Normal bowel sounds, Soft, Other (some incisional tenderness) Labs Laboratory Tests Test 01/27/17 11:17 01/27/17 12:10 01/27/17 12:25 Bedside Urine HCG, Qualitative Hcg negative (Negative) Urine Color Yellow Urine Clarity Clear Urine pH 5.5 Urine Specific [place] 1.020 Urine Protein Negativemg/dL (NEG-TRACE) Urine Glucose (UA) Negativemg/dL (NEG) Urine Ketones (Stick) Negativemg/dL (NEG) Urine Blood Small (NEG) Urine Nitrite Negative (NEG) Urine Bilirubin Negative (NEG) Urine Urobilinogen Dipstick 0.2mg/dL (0.2 mg/dL) Urine Leukocyte Esterase Trace (NEG) Urine RBC 1-2/HPF (0-2) Urine WBC 1-4/HPF (0-4) Urine Squamous Epithelial Cells Occ/LPF Urine Amorphous Sediment Present/HPF Urine Bacteria 0/HPF (0-FEW) Urine Mucus Slight/LPF White Blood Count 8.7x10^3/uL (4.0-11.0) Red Blood Count 4.56x10^6/uL (3.50-5.40) Hemoglobin 14.0g/dL (12.0-15.5) Hematocrit 41.8% (36.0-47.0) Mean Corpuscular Volume 92fL (79-100) Mean Corpuscular Hemoglobin 31pg (25-35) Mean Corpuscular Hemoglobin Concent 34g/dL (31-37) Red Cell Distribution Width 12.2% (11.5-14.5) Platelet Count 262x10^3/uL (140-400) Neutrophils (%) (Auto) 63% (31-73) Lymphocytes (%) (Auto) 27% (24-48) Monocytes (%) (Auto) 6% (0-9) Eosinophils (%) (Auto) 3% (0-3) Basophils (%) (Auto) 1% (0-3) Neutrophils # (Auto) 5.5x10^3uL (1.8-7.7) Lymphocytes # (Auto) 2.3x10^3/uL (1.0-4.8) Monocytes # (Auto) 0.5x10^3/uL (0.0-1.1) Eosinophils # (Auto) 0.2x10^3/uL (0.0-0.7) Basophils # (Auto) 0.1x10^3/uL (0.0-0.2) Sodium Level 137mmol/L (136-145) Potassium Level 3.8mmol/L (3.5-5.1) Chloride Level 105mmol/L (98-107) Carbon Dioxide Level 24mmol/L (21-32) Anion Gap 8 (6-14) Blood Urea Nitrogen 13mg/dL (7-20) Creatinine 0.8mg/dL (0.6-1.0) Estimated GFR (Cockcroft-Gault) 77.6 BUN/Creatinine Ratio 16 (6-20) Glucose Level 93mg/dL (70-99) Calcium Level 8.9mg/dL (8.5-10.1) Total Bilirubin 0.3mg/dL (0.2-1.0) Aspartate Amino Transf (AST/SGOT) 18U/L (15-37) Alanine Aminotransferase (ALT/SGPT) 27U/L (14-59) Alkaline Phosphatase 66U/L (46-116) Total Protein 8.2g/dL (6.4-8.2) Albumin 3.5g/dL (3.4-5.0) Albumin/Globulin Ratio 0.7 (1.0-1.7) Lipase 181U/L (73-393) Problem List Problems Medical Problems: (1) Abdominal pain Status: Acute (2) Biliary colic Status: Acute (3) Right upper quadrant abdominal pain Status: Acute Assessment/Plan s/p l/s cholecystectomy Doing well, ok to D/C home per surgery F/U in 2 weeks Problems: LAI SOFIA MD January 29, 2017 08:01
[2017-01-29] MEDS ORDERED: ERGOCALCIFEROL (VITAMIN D2) 50,000 UNIT CAPSULE. PO SCH (09:00)
[2017-01-29] MEDS: AMOXICILLIN/K CLAV 875/125MG TABLET. PO SCH (09:04)
[2017-01-29] MEDS: PANTOPRAZOLE 40 MG TABLET.DR. PO SCH (09:04)
[2017-01-29 11:00] VITALS: BP 107/65
[2017-01-29] MEDS ORDERED: OXYC1TAB7 PO (14:31)
--- NOTE | 2017-01-29 14:32 | DISCH ---
DISCHARGE INSTRUCTIONS Condition on Discharge Condition on Discharge: Stable Activity After Discharge Activity Instructions for Disc: Activity as tolerated Lifting Instructions after Dis: No heavy lifting Diet after Discharge Diet after Discharge: Regular Contacting the DRChandrika after DC Call your doctor for: If your condition worsens Follow-Up Follow up with: Dr. abdalla in 2 weeks Follow Up With: Dr. Ritchie in 1 week Treatment/Equipment after DC Adaptive Equipment Issued: None SHAN RITCHIE MD January 29, 2017 14:32
[2017-01-29 15:00] VITALS: BP 109/72
--- NOTE | 2017-01-29 21:55 | DS ---
DATE OF DISCHARGE: 01/29/2017 ADMISSION DIAGNOSIS: Acute on chronic cholecystitis. DISCHARGE DIAGNOSIS: Acute on chronic cholecystitis. CONSULTS: Dr. Juarez. PRINCIPAL PROCEDURE: Laparoscopic cholecystectomy. HISTORY AND HOSPITAL COURSE: This is a 46-year-old white female who presented to the office a week ago with right upper quadrant pain. Evaluation suggested gallbladder etiology. She also had urinary tract infection that time and was started on amoxicillin. Her gallbladder sonogram was done on Friday showed gallstones, but did not show thickening of her gallbladder wall. We arranged her for outpatient PIPIDA scan and surgical referral. Friday morning though pain became more significant ____. She presented to the Emergency Room and was subsequently admitted. Seen by Dr. Juarez scheduled for surgery. The following day, which was done without complications and she is now ready for discharge. No other medical complications or surgical complications. Exam shows her to be alert and oriented with normal heart, lungs sound. She has bowel sounds. She has a little bit of expected tenderness ____ which are dry. Abdomen is nondistended. No clubbing, cyanosis or edema. Skin color and turgor are normal. She is well hydrated. Vitals are stable. Labs showed normal CBC. Unremarkable chemistries. Unremarkable urinalysis: Urine microbiology has no growth. Diet will be as tolerated. Activity, no heavy lifting. She will refrain from driving for the next few days. She will follow up with me in the office in a week, Dr. Juarez in 2 weeks. She will be off work for the next 2 weeks. W Porsche RITCHIE MD DR: GORDON/tika JOB#: [id number] / [id number]
--- NOTE | 2017-01-30 16:00 | PATHOLOGY ---
PATHOLOGY REPORT * * * * * * * * FINAL DIAGNOSIS: Gallbladder, laparoscopic cholecystectomy: - Cholelithiasis. - Cholesterolosis, focal. - Chronic cholecystitis. COMMENT: There is no evidence of malignancy. (JPM:csd; d/t: 01/30/2017) REPORT ELECTRONICALLY SIGNED BY: Dre Shabazz M.D. DATE/TIME: 01/30/2017 15:59 * * * * * * * * GROSS PATHOLOGY: Received in formalin labeled "Arleth Hayes, gallbladder and contents," is an 8.4 x 3.4 x 3.0 cm, previously punctured gallbladder with green-hernandez serosal surfaces. Opening the gallbladder reveals velvety and light green to trabeculated and dark green mucosa and an average wall thickness of 0.1 cm. Multiple dark green, granular calculi are present and no masses are noted grossly. It Trainee sections from the body and fundus are submitted along with the proximal margin in cassette A1. (KAH; 01/29/2017) INITIAL CPT CODE(S): A; 51176 Professional services performed [place] [facility] [address] Technical services performed by [facility] at [address] [place] [address]. SPECIMEN(S) RECEIVED: A.Gallbladder and contents CLINICAL HISTORY: Symptomatic cholelithiasis PATIENT: ARLETH HAYES /AGE: 12 1970 (Age: 46) PATIENT #: [id number] ALT CASE #: SPECIMEN COLLECTION DATE: 01/28/2017 SPECIMEN RECEIVED DATE: 01/28/2017 [facility] - [address] [place] [address] - PHONE: [phone] * * * END OF REPORT * * *
== END 2017-01-29 17:16 | disposition home or self-care (01) | DRG 419 ==
LOC: ER 11:42 → 6 SOUTH 14:00
PROVIDERS: ADMIT Family Medicine; ATTEND Family Medicine
PROC: 0FT44ZZ Resection of Gallbladder, Percutaneous Endoscopic Approach (ICD-10-PCS; principal; 2017-01-28 13:00)
DX: K80.12 Calculus of gallbladder with acute and chronic cholecystitis without obstruction (principal); K21.9 Gastro-esophageal reflux disease without esophagitis; K76.0 Fatty (change of) liver, not elsewhere classified; F32.9 Major depressive disorder, single episode, unspecified; Z90.710 Acquired absence of both cervix and uterus; Z87.730 Personal history of (corrected) cleft lip and palate; Z87.11 Personal history of peptic ulcer disease; Z88.2 Allergy status to sulfonamides
CPT/HCPCS: 36415; 80053; 81001; 81025; 83690; 85027; 87086; 96361; 96365; 96375; C1782; J0330; J0690; J1100; J2270; J2405; J2543; J2704; J3010; J7030; J7120; Q9967; 99285-25

== ENCOUNTER → 2017-02-11 | Outpatient (CLI) | payer OTHER ==
[2017-01-29 15:00] VITALS: BP 109/72
[~2017-02-11] MED LIST changes: +AMOX1TAB11 PO; +OMEP20CA9 PO; +OXYC1TAB7 PO; +TIZA4TAB PO
--- NOTE | 2017-02-11 11:23 | RAD ---
CT of the paranasal sinuses without contrast, 02/11/2017: History: Chronic sinusitis Noncontrast scans were obtained with multiplanar reconstructions produced. No fluid or significant mucosal thickening is evident in the paranasal sinuses. There is mild deviation of the nasal septum to the right of midline. The orbital contents are unremarkable. IMPRESSION: No significant paranasal sinus abnormality is detected. PQRS Compliance Statement: One or more of the following individualized dose reduction techniques were utilized for this examination: 1. Automated exposure control 2. Adjustment of the mA and/or kV according to patient size 3. Use of iterative reconstruction technique
== END | disposition home or self-care (01) ==
LOC: CT 10:32
PROVIDERS: ATTEND Family Medicine
DX: J32.4 Chronic pansinusitis (principal)
CPT/HCPCS: 70486

== ENCOUNTER 2017-02-18 08:10 | Emergency (ER) | payer OTHER ==
[~2017-02-18] VITALS: Ht 160 cm; Wt 81.6 kg
[2017-02-18 08:18] VITALS: BP 135/85
--- NOTE | 2017-02-18 08:30 | PHYS DOC ---
Past Medical History Past Medical History: No Pertinent History Past Surgical History: Cholecystectomy, Hysterectomy, Tubal ligation Alcohol Use: Occasionally Drug Use: None Adult General Chief Complaint Chief Complaint: FLANK PAIN [facility] HPI Patient is a 46 year old female presents to the emergency department with a history of right flank pain. She states the pain has been occurring on and off since October. Patient states she has had hematuria on and off. Patient states she has had right flank pain. She has had referrals from her PCP, Dr Ritchie to nephrology. Patient states she has not been able to get in yet. She denies fever , chills, nausea or vomiting. Review of Systems Review of Systems Constitutional: Denies fever or chills [] Eyes: Denies change in visual acuity, redness, or eye pain [] HENT: Denies nasal congestion or sore throat [] Respiratory: Denies cough or shortness of breath [] Cardiovascular: No additional information not addressed in HPI [] GI: Denies abdominal pain, nausea, vomiting, bloody stools or diarrhea [] : Denies dysuria or hematuria [] Musculoskeletal: C/o right flank pain, denies joint pain Integument: Denies rash or skin lesions [] Neurologic: Denies headache, focal weakness or sensory changes [] Endocrine: Denies polyuria or polydipsia [] Allergies Allergies Allergies Coded Allergies Type Severity Reaction Last Updated Verified Sulfa (Sulfonamide Antibiotics) Allergy Intermediate 02/24/14 No Physical Exam Physical Exam Constitutional: Well developed, well nourished, no acute distress, non-toxic appearance. [] HENT: Normocephalic, atraumatic, bilateral external ears normal, oropharynx moist, no oral exudates, nose normal. [] Eyes: PERRLA, EOMI, conjunctiva normal, no discharge. [] Neck: Normal range of motion, no tenderness, supple, no stridor. [] Cardiovascular:Heart rate regular rhythm, no murmur [] Lungs & Thorax: Bilateral breath sounds clear to auscultation [] Abdomen: Bowel sounds hypoactive, soft, upper abdominal tenderness (patient s/p lap lyndsay from 01/28/17), no masses, no pulsatile masses. [] Skin: Warm, dry, no erythema, no rash. [] Back: No tenderness, Right CVA tenderness. [] Extremities: No tenderness, no cyanosis, no clubbing, ROM intact, no edema. [] Neurologic: Alert and oriented X 3, normal motor function, normal sensory function, no focal deficits noted. [] Psychologic: Affect normal, judgement normal, mood normal. [] Current Patient Data Vital Signs Vital Signs Date Time Temp Pulse Resp B/P (MAP) Pulse Ox O2 Delivery O2 Flow Rate FiO2 02/18/17 08:18 97.7 88 16 135/85 (102) 97 Room Air 97.7 Lab Values Laboratory Tests Test 02/18/17 08:15 02/18/17 08:35 Urine Collection Type Unknown Urine Color Yellow Urine Clarity Clear Urine pH 6.0 Urine Specific [place] 1.010 Urine Protein Negative mg/dL (NEG-TRACE) Urine Glucose (UA) Negative mg/dL (NEG) Urine Ketones (Stick) Negative mg/dL (NEG) Urine Blood Trace (NEG) Urine Nitrite Negative (NEG) Urine Bilirubin Negative (NEG) Urine Urobilinogen Dipstick 0.2 mg/dL (0.2 mg/dL) Urine Leukocyte Esterase Small (NEG) Urine RBC Rare /HPF (0-2) Urine WBC Occ /HPF (0-4) Urine Squamous Epithelial Cells Many /LPF Urine Transitional Epithelial Cells Occ /LPF Urine Bacteria 0 /HPF (0-FEW) Urine Mucus Slight /LPF White Blood Count 9.5 x10^3/uL (4.0-11.0) Red Blood Count 4.45 x10^6/uL (3.50-5.40) Hemoglobin 13.5 g/dL (12.0-15.5) Hematocrit 40.7 % (36.0-47.0) Mean Corpuscular Volume 92 fL (79-100) Mean Corpuscular Hemoglobin 30 pg (25-35) Mean Corpuscular Hemoglobin Concent 33 g/dL (31-37) Red Cell Distribution Width 12.4 % (11.5-14.5) Platelet Count 287 x10^3/uL (140-400) Neutrophils (%) (Auto) 57 % (31-73) Lymphocytes (%) (Auto) 27 % (24-48) Monocytes (%) (Auto) 5 % (0-9) Eosinophils (%) (Auto) 9 % (0-3) H Basophils (%) (Auto) 1 % (0-3) Neutrophils # (Auto) 5.4 x10^3uL (1.8-7.7) Lymphocytes # (Auto) 2.6 x10^3/uL (1.0-4.8) Monocytes # (Auto) 0.5 x10^3/uL (0.0-1.1) Eosinophils # (Auto) 0.9 x10^3/uL (0.0-0.7) H Basophils # (Auto) 0.1 x10^3/uL (0.0-0.2) Sodium Level 138 mmol/L (136-145) Potassium Level 4.4 mmol/L (3.5-5.1) Chloride Level 104 mmol/L (98-107) Carbon Dioxide Level 25 mmol/L (21-32) Anion Gap 9 (6-14) Blood Urea Nitrogen 12 mg/dL (7-20) Creatinine 0.9 mg/dL (0.6-1.0) Estimated GFR (Cockcroft-Gault) 67.7 BUN/Creatinine Ratio 13 (6-20) Glucose Level 122 mg/dL (70-99) H Calcium Level 9.3 mg/dL (8.5-10.1) Total Bilirubin 0.5 mg/dL (0.2-1.0) Aspartate Amino Transferase (AST) 15 U/L (15-37) Alanine Aminotransferase (ALT) 22 U/L (14-59) Alkaline Phosphatase 69 U/L (46-116) Total Protein 7.7 g/dL (6.4-8.2) Albumin 3.4 g/dL (3.4-5.0) Albumin/Globulin Ratio 0.8 (1.0-1.7) L Laboratory Tests 02/18/17 08:35 Laboratory Tests 02/18/17 08:35 EKG EKG [] Radiology/Procedures Radiology/Procedures [] Course & Med Decision Making Course & Med Decision Making Pertinent Labs and Imaging studies reviewed. (See chart for details) Ultrasound negative, CBC and CMP negative. Patients urine positive for trace of blood, leukocyte Estrace. Patient does have right flank tenderness. Patient will be provided with Cipro with recommendations to follow-up with nephrology as well as urology. Patient will also be recommended to use Tylenol or ibuprofen for pain and discomfort. Patient will be discharged home in stable condition signs symptoms to return back to emergency department as been provided. Patient will be discharged home in stable condition. Pharmacy called stating their is an interaction with Sincerero and her home medication the antibiotic was changed to Macorbid. Dragtasia Disclaimer Dragon Disclaimer This electronic medical record was generated, in whole or in part, using a voice recognition dictation system. Departure Departure Impression: Primary Impression: Right flank pain Disposition: HOME, SELF-CARE Condition: STABLE Referrals: SHAN RITCHIE MD (PCP) Patient Instructions: Flank Pain, [id number] Additional Instructions: Activity as tolerated Medication as prescribed Tylenol or Ibuprofen for pain and discomfort Drink plenty of water and cranberry juice Avoid cranberry juice cocktail, carbonated beverages, citrus fruits, alcohol and caffeine as these are considered to irritants to the bladder Followup with your primary care provider in 7-10 days Return to emergency department as needed for signs and symptoms that become worse. Scripts Nitrofurantoin Monohyd/M-Cryst (MACROBID 100 MG CAPSULE) 100 Mg Capsule 1 CAP PO BID, #14 CAP Prov: MAKI DEJESUS APRN 02/18/17 MAKI DEJESUS APRN February 18, 2017 08:30
--- NOTE | 2017-02-18 08:49 | RAD ---
Indication right flank pain. History of hematuria. Grayscale imaging was performed targeted to the right kidney. No similar imaging is available. The right kidney measures 10.8 x 4.2 x 5.2 cm and appears unremarkable. No mass or hydronephrosis is seen. IMPRESSION: Normal morphologic appearance of the right kidney
[2017-02-18 08:50] LABS: BILIRUBIN,URINE NEGATIVE (NEG); GLUCOSE,URINE NEGATIVE (NEG); NITRITE,URINE NEGATIVE (NEG); PROTEIN,URINE NEGATIVE (NEG-TRACE); UROBILINOGEN,URINE 0.2 mg/dL (0.2 mg/dL)
[2017-02-18 08:51] LABS: BASO # 0.1 x10^3/uL (0.0-0.2); BASO % 1 % (0-3); EOS % 9 % (0-3); HEMATOCRIT 40.7 % (36.0-47.0); HEMOGLOBIN 13.5 g/dL (12.0-15.5); LYMPH # 2.6 x10^3/uL (1.0-4.8); LYMPH % 27 % (24-48); MEAN CORPUSCULAR HEMOGLOBIN 30 pg (25-35); MEAN CORPUSCULAR HGB CONC 33 g/dL (31-37); MEAN CORPUSCULAR VOLUME 92 fL (79-100); MONO % 5 % (0-9); NEUT % 57 % (31-73); PLATELET COUNT 287 x10^3/uL (140-400); RED BLOOD COUNT 4.45 x10^6/uL (3.50-5.40); RED CELL DISTRIBUTION WIDTH 12.4 % (11.5-14.5); WHITE BLOOD COUNT 9.5 x10^3/uL (4.0-11.0)
[2017-02-18 09:01] LABS: BACTERIA,URINE 0 /HPF (0-FEW); RBC,URINE RARE /HPF (0-2); SQUAMOUS EPITHELIAL CELL,UR MANY /LPF; WBC,URINE OCC /HPF (0-4)
[2017-02-18 09:06] LABS: CALCIUM 9.3 mg/dL (8.5-10.1); CREATININE 0.9 mg/dL (0.6-1.0); GFR 67.7; POTASSIUM 4.4 mmol/L (3.5-5.1)
[2017-02-18 09:12] LABS: ALBUMIN 3.4 g/dL (3.4-5.0); ALBUMIN/GLOBULIN RATIO 0.8 (1.0-1.7); TOTAL BILIRUBIN 0.5 mg/dL (0.2-1.0); TOTAL PROTEIN 7.7 g/dL (6.4-8.2)
[2017-02-18] MEDS ORDERED: CIPR500T94 PO (09:34)
[2017-02-18] MEDS ORDERED: NITR100C62 PO (10:36)
== END 2017-02-18 09:44 | disposition home or self-care (01) ==
LOC: ER 08:10
DX: R10.9 Unspecified abdominal pain (principal); Z90.49 Acquired absence of other specified parts of digestive tract; Z90.710 Acquired absence of both cervix and uterus; Z98.51 Tubal ligation status; Z88.2 Allergy status to sulfonamides
CPT/HCPCS: 36415; 76775; 80053; 81001; 85027; 87086; 99285-25

== ENCOUNTER → 2017-04-25 | Outpatient (CLI) | payer OTHER ==
[~2017-04-25] MED LIST changes: +CIPR500T94 PO; +NITR100C62 PO
--- NOTE | 2017-04-25 13:02 | RAD ---
4 views left wrist 04/25/2017 Clinical indications: Left wrist pain. Comparison: None. Findings: No acute fracture or traumatic malalignment. Soft tissues are within normal limits. Joint spaces maintained. Impression: No acute osseous abnormality. If there is focal soft box tenderness, immobilization and repeat exam in 10-14 days is recommended for radiographically occult fracture.
== END | disposition home or self-care (01) ==
LOC: RAD 12:31
PROVIDERS: ATTEND Family Medicine
DX: M25.532 Pain in left wrist (principal)
CPT/HCPCS: 73110

== ENCOUNTER 2017-06-30 09:20 | Emergency (ER) | payer OTHER ==
[~2017-06-30] VITALS: Ht 160 cm; Wt 81.6 kg
[2017-06-30] MEDS ORDERED: KETOROLAC 30 MG/ML INJ. IV ONE (10:15)
[2017-06-30 10:29] LABS: HEMATOCRIT 41.1 % (36.0-47.0); HEMOGLOBIN 13.6 g/dL (12.0-15.5); RED BLOOD COUNT 4.43 x10^6/uL (3.50-5.40); RED CELL DISTRIBUTION WIDTH 12.6 % (11.5-14.5); WHITE BLOOD COUNT 7.9 x10^3/uL (4.0-11.0)
[2017-06-30 10:33] LABS: CREATININE 0.8 mg/dL (0.6-1.0); GFR 77.6; POTASSIUM 4.5 mmol/L (3.5-5.1)
--- NOTE | 2017-06-30 10:37 | RAD ---
Chest x-ray Indication: Chest pain, right upper quadrant pain, status post cholecystectomy 4 months ago Technique: Portable AP upright chest x-ray Comparison: Previous study from 03/03/2012 Findings: Heart is normal in size. Lungs are clear. No pneumothorax or pleural effusion. Visualized bony thorax is within normal limits. Impression: No acute cardiopulmonary process.
[2017-06-30 10:39] LABS: ALBUMIN 3.6 g/dL (3.4-5.0); TOTAL BILIRUBIN 0.2 mg/dL (0.2-1.0); TOTAL PROTEIN 7.3 g/dL (6.4-8.2)
--- NOTE | 2017-06-30 10:57 | PHYS DOC ---
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 Past Surgical History: Cholecystectomy, Hysterectomy, Tubal ligation Additional Past Surgical Histo: Tubes in ears,several cleft palate surgeries. Alcohol Use: Occasionally Drug Use: None Adult General Chief Complaint Chief Complaint: FLANK PAIN HPI HPI Patient is a 46 year old female with a history of cholecystectomy presents the ED complaining of right upper quadrant pain 2 days. Describes the pain as sharp. Rates the pain as 9 out of 10. Denies nausea/vomiting, fever, chest pain , shortness of breath, dizziness, weakness, syncope or headache. Review of Systems Review of Systems Constitutional: Denies fever or chills [] Eyes: Denies change in visual acuity, redness, or eye pain [] HENT: Denies nasal congestion or sore throat [] Respiratory: Denies cough or shortness of breath [] Cardiovascular: No additional information not addressed in HPI [] GI: Complains of abdominal pain. Denies nausea, vomiting, bloody stools or diarrhea [] : Denies dysuria or hematuria [] Musculoskeletal: Denies back pain or joint pain [] Integument: Denies rash or skin lesions [] Neurologic: Denies headache, focal weakness or sensory changes [] Endocrine: Denies polyuria or polydipsia [] Current Medications Current Medications Current Medications Medications (Trade) Dose Ordered Sig/Zulma Start Time Stop Time Status Last Admin Dose Admin Ketorolac Tromethamine (Toradol) 30 mg 1X ONCE 06/30/17 10:15 06/30/17 10:16 DC 06/30/17 10:49 30 MG Allergies Allergies Allergies Coded Allergies Type Severity Reaction Last Updated Verified Sulfa (Sulfonamide Antibiotics) Allergy Intermediate 02/24/14 No Physical Exam Physical Exam Constitutional: Well developed, well nourished, no acute distress, non-toxic appearance. [] HENT: Normocephalic, atraumatic, bilateral external ears normal, oropharynx moist, no oral exudates, nose normal. [] Eyes: PERRLA, EOMI, conjunctiva normal, no discharge. [] Neck: Normal range of motion, no tenderness, supple, no stridor. [] Cardiovascular:Heart rate regular rhythm, no murmur [] Lungs & Thorax: Bilateral breath sounds clear to auscultation [] Abdomen: Bowel sounds normal, soft, MILD RUQ TENDERNESS. no masses, no pulsatile masses. [] Skin: Warm, dry, no erythema, no rash. [] Back: No tenderness, no CVA tenderness. [] Extremities: No tenderness, no cyanosis, no clubbing, ROM intact, no edema. [] Neurologic: Alert and oriented X 3, normal motor function, normal sensory function, no focal deficits noted. [] Psychologic: Affect normal, judgement normal, mood normal. [] Current Patient Data Vital Signs Vital Signs Date Time Temp Pulse Resp B/P (MAP) Pulse Ox O2 Delivery O2 Flow Rate FiO2 06/30/17 11:46 68 122/76 (91) 97 Room Air 06/30/17 10:00 97.7 16 97.7 Lab Values Laboratory Tests Test 06/30/17 10:15 06/30/17 11:30 White Blood Count 7.9 x10^3/uL (4.0-11.0) Red Blood Count 4.43 x10^6/uL (3.50-5.40) Hemoglobin 13.6 g/dL (12.0-15.5) Hematocrit 41.1 % (36.0-47.0) Mean Corpuscular Volume 93 fL (79-100) Mean Corpuscular Hemoglobin 31 pg (25-35) Mean Corpuscular Hemoglobin Concent 33 g/dL (31-37) Red Cell Distribution Width 12.6 % (11.5-14.5) Platelet Count 253 x10^3/uL (140-400) Sodium Level 140 mmol/L (136-145) Potassium Level 4.5 mmol/L (3.5-5.1) Chloride Level 104 mmol/L (98-107) Carbon Dioxide Level 27 mmol/L (21-32) Anion Gap 9 (6-14) Blood Urea Nitrogen 10 mg/dL (7-20) Creatinine 0.8 mg/dL (0.6-1.0) Estimated GFR (Cockcroft-Gault) 77.6 BUN/Creatinine Ratio 13 (6-20) Glucose Level 85 mg/dL (70-99) Calcium Level 9.0 mg/dL (8.5-10.1) Total Bilirubin 0.2 mg/dL (0.2-1.0) Aspartate Amino Transferase (AST) 22 U/L (15-37) Alanine Aminotransferase (ALT) 32 U/L (14-59) Alkaline Phosphatase 81 U/L (46-116) Troponin I Quantitative < 0.017 ng/mL (0.000-0.055) Total Protein 7.3 g/dL (6.4-8.2) Albumin 3.6 g/dL (3.4-5.0) Albumin/Globulin Ratio 1.0 (1.0-1.7) Lipase 173 U/L (73-393) Urine Collection Type Unknown Urine Color Yellow Urine Clarity Clear Urine pH 6.0 Urine Specific [place] <=1.005 Urine Protein Negative mg/dL (NEG-TRACE) Urine Glucose (UA) Negative mg/dL (NEG) Urine Ketones (Stick) Negative mg/dL (NEG) Urine Blood Negative (NEG) Urine Nitrite Negative (NEG) Urine Bilirubin Negative (NEG) Urine Urobilinogen Dipstick 0.2 mg/dL (0.2 mg/dL) Urine Leukocyte Esterase Negative (NEG) Urine RBC Occ /HPF (0-2) Urine WBC Occ /HPF (0-4) Urine Squamous Epithelial Cells Mod /LPF Urine Bacteria 0 /HPF (0-FEW) Laboratory Tests 06/30/17 10:15 Laboratory Tests 06/30/17 10:15 EKG EKG [] Radiology/Procedures Radiology/Procedures PROCEDURE: CHEST AP ONLY Chest x-ray Indication: Chest pain, right upper quadrant pain, status post cholecystectomy 4 months ago Technique: Portable AP upright chest x-ray Comparison: Previous study from 03/03/2012 Findings: Heart is normal in size. Lungs are clear. No pneumothorax or pleural effusion. Visualized bony thorax is within normal limits. Impression: No acute cardiopulmonary process. []PROCEDURE: CT ABDOMEN PELVIS WO CONTRAST CT of the abdomen and pelvis without contrast, 06/30/2017: History: Right-sided pain Noncontrast scans were obtained as requested. The gallbladder is surgically absent. No abnormal fluid collection is seen in the gallbladder fossa region. The unopacified liver is unremarkable. No pancreatic abnormality is detected. The spleen is of normal size. A small accessory spleen is noted. The unopacified kidneys show no abnormality. No urinary tract calculi are evident. The abdominal aorta is unremarkable. Several small retroperitoneal, mesenteric and pelvic lymph nodes are seen without definite pathologic enlargement. The uterus is surgically absent. A 2.3 cm low-density structure in the pelvis on the right is probably an ovarian cyst. The bowel loops are not dilated. A portion of what appears to be the appendix is visualized and it shows no abnormality. No dilated appendix or pericecal inflammatory process is seen. No free air or significant free fluid is evident in the abdomen or pelvis. IMPRESSION: No acute abdominal or pelvic abnormality is detected. Course & Med Decision Making Course & Med Decision Making Pertinent Labs and Imaging studies reviewed. (See chart for details) Discussed labs and imaging with patient. Patient's pain improved. Vital stable, no acute distress. On reexamination, Abdomen is soft nontender nondistended. No peritoneal signs. Discussed follow-up with patient this week. Discussed reasons to return to the ED. Patient understands and agrees with plan. Dragon Disclaimer Dragon Disclaimer This electronic medical record was generated, in whole or in part, using a voice recognition dictation system. Departure Departure Impression: Primary Impression: Abdominal pain Disposition: 01 HOME, SELF-CARE Condition: IMPROVED Referrals: Carolina RITCHIE MD (PCP) Patient Instructions: Abdominal Pain Scripts Hydrocodone/Apap 5-325 (NORCO 5-325 TABLET) 1 Each Tablet 1 TAB PO BID, #10 TAB Prov: TAMIKA SHEPHERD 06/30/17 TAMIKA SHEPHERD Jun 30, 2017 10:57
--- NOTE | 2017-06-30 11:08 | EKG ---
[facility] [address] [place] [address] Test Date: 2017-06-30 Test Time: 10:23:04 Pat Name: ARLETH GREEN Department: Room: Gender: F Pasteurizer: : 1970 Requested By: TAMIKA SHEPHERD Order Number: [id number] Reading MD: Measurements Intervals [place] Rate: 72 P: 34 SD: 124 QRS: 11 QRSD: 84 T: 5 QT: 406 QTc: 446 Interpretive Statements SINUS RHYTHM NORMAL ECG RI6.01 Unconfirmed report No previous ECG available for comparison
--- NOTE | 2017-06-30 11:13 | RAD ---
CT of the abdomen and pelvis without contrast, 06/30/2017: History: Right-sided pain Noncontrast scans were obtained as requested. The gallbladder is surgically absent. No abnormal fluid collection is seen in the gallbladder fossa region. The unopacified liver is unremarkable. No pancreatic abnormality is detected. The spleen is of normal size. A small accessory spleen is noted. The unopacified kidneys show no abnormality. No urinary tract calculi are evident. The abdominal aorta is unremarkable. Several small retroperitoneal, mesenteric and pelvic lymph nodes are seen without definite pathologic enlargement. The uterus is surgically absent. A 2.3 cm low-density structure in the pelvis on the right is probably an ovarian cyst. The bowel loops are not dilated. A portion of what appears to be the appendix is visualized and it shows no abnormality. No dilated appendix or pericecal inflammatory process is seen. No free air or significant free fluid is evident in the abdomen or pelvis. IMPRESSION: No acute abdominal or pelvic abnormality is detected. PQRS Compliance Statement: One or more of the following individualized dose reduction techniques were utilized for this examination: 1. Automated exposure control 2. Adjustment of the mA and/or kV according to patient size 3. Use of iterative reconstruction technique
[2017-06-30 11:36] LABS: BILIRUBIN,URINE NEGATIVE (NEG); GLUCOSE,URINE NEGATIVE (NEG); NITRITE,URINE NEGATIVE (NEG); PROTEIN,URINE NEGATIVE (NEG-TRACE); UROBILINOGEN,URINE 0.2 mg/dL (0.2 mg/dL)
[2017-06-30 11:46] VITALS: BP 122/76
[2017-06-30 11:47] LABS: BACTERIA,URINE 0 /HPF (0-FEW); RBC,URINE OCC /HPF (0-2); SQUAMOUS EPITHELIAL CELL,UR MOD /LPF; WBC,URINE OCC /HPF (0-4)
[2017-06-30] MEDS ORDERED: HYDR-971 PO (11:51)
== END 2017-06-30 12:12 | disposition home or self-care (01) ==
LOC: ER 09:20
DX: R10.11 Right upper quadrant pain (principal); Z88.2 Allergy status to sulfonamides
CPT/HCPCS: 36415; 71010; 74176; 80053; 81001; 83690; 84484; 85027; 93005; 96374; 99285; J1885

== ENCOUNTER 2017-12-18 10:51 | Inpatient (IN) | payer OTHER ==
[2017-12-18 11:28] LABS: ADD MAN DIFF? NO
[2017-12-18] MEDS ORDERED: fentaNYL PF VIAL 100 MCG/2 ML VIAL IV ×2 (11:30→16:15)
[2017-12-18 11:33] LABS: BASO # 0.2 x10^3/uL (0.0-0.2); BASO % 1 % (0-3); EOS # 0.1 x10^3/uL (0.0-0.7); EOS % 1 % (0-3); HEMATOCRIT 41.4 % (36.0-47.0); HEMOGLOBIN 13.8 g/dL (12.0-15.5); LYMPH # 4.1 x10^3/uL (1.0-4.8); LYMPH % 31 % (24-48); MEAN CORPUSCULAR HEMOGLOBIN 31 pg (25-35); MEAN CORPUSCULAR HGB CONC 33 g/dL (31-37); MEAN CORPUSCULAR VOLUME 93 fL (79-100); MONO # 0.6 x10^3/uL (0.0-1.1); MONO % 5 % (0-9); NEUT % 62 % (31-73); PLATELET COUNT 343 x10^3/uL (140-400); RED BLOOD COUNT 4.45 x10^6/uL (3.50-5.40); RED CELL DISTRIBUTION WIDTH 12.4 % (11.5-14.5)
[2017-12-18] MEDS: NITROGLYCERIN SUBLINGUAL 0.4 MG BOTTLE OF 25. SL (11:42)
[2017-12-18 11:47] LABS: ANION GAP 11 (6-14); BLOOD UREA NITROGEN 17 mg/dL (7-20); BUN/CREATININE RATIO 21 (6-20); CALCIUM 9.3 mg/dL (8.5-10.1); CARBON DIOXIDE 27 mmol/L (21-32); CHLORIDE 102 mmol/L (98-107); CREATININE 0.8 mg/dL (0.6-1.0); GFR 77.2; GLUCOSE 104 mg/dL (70-99); SODIUM 140 mmol/L (136-145)
[2017-12-18 11:54] LABS: ALBUMIN 3.5 g/dL (3.4-5.0); ALBUMIN/GLOBULIN RATIO 0.9 (1.0-1.7); ALK PHOS 87 U/L (46-116); ALT (SGPT) 23 U/L (14-59); AST (SGOT) 16 U/L (15-37); LIPASE 137 U/L (73-393); TOTAL BILIRUBIN 0.2 mg/dL (0.2-1.0); TOTAL PROTEIN 7.6 g/dL (6.4-8.2)
[2017-12-18 11:57] LABS: TROPONINI < 0.017 ng/mL (0.000-0.055)
[2017-12-18 11:58] LABS: NT-PRO BNP 33 pg/mL (0-124)
[2017-12-18 12:40] LABS: BARBITURATES NEG (NEG); BENZODIAZEPINES NEG (NEG); CANNABINOIDS NEG (NEG); COCAINE NEG (NEG); METHADONE NEG (NEG); OPIATES NEG (NEG); PHENCYCLIDINE NEG (NEG)
[2017-12-18 12:42] LABS: AMPHETAMINE/METHAMPHETAMINE NEG (NEG); ETHANOL, URINE NEG (NEG)
[2017-12-18] MEDS: IOHEXOL 300 MG/ML 100ML VIAL. IV (14:04)
[2017-12-18] MEDS ORDERED: CONTRAST GIVEN MC (14:15)
[2017-12-18] MEDS: ASPIRIN CHEWABLE 81 MG TABLET. PO (16:09)
[2017-12-18] MEDS ORDERED: NITROGLYCERIN SUBLINGUAL 0.4 MG BOTTLE OF 25. SL (16:15)
[2017-12-18] MEDS ORDERED: ONDANSETRON PF 4 MG/2 ML VIAL. IV (16:15)
[2017-12-18] MEDS ORDERED: BISACODYL 5 MG TABLET.DR. PO (18:15)
[2017-12-18 20:10] LABS: TROPONINI < 0.017 ng/mL (0.000-0.055)
[2017-12-18] MEDS: rifAXIMin 550 MG TABLET PO (20:36)
[2017-12-18] MEDS: ACETAMINOPHEN 325 MG TABLET. PO (20:39)
[2017-12-19 00:10] LABS: TROPONINI < 0.017 ng/mL (0.000-0.055)
[2017-12-19 05:13] LABS: ADD MAN DIFF? NO; BASO # 0.1 x10^3/uL (0.0-0.2); BASO % 1 % (0-3); EOS # 0.1 x10^3/uL (0.0-0.7); EOS % 1 % (0-3); HEMATOCRIT 39.5 % (36.0-47.0); HEMOGLOBIN 12.9 g/dL (12.0-15.5); LYMPH # 4.2 x10^3/uL (1.0-4.8); LYMPH % 30 % (24-48); MEAN CORPUSCULAR HEMOGLOBIN 31 pg (25-35); MEAN CORPUSCULAR HGB CONC 33 g/dL (31-37); MEAN CORPUSCULAR VOLUME 94 fL (79-100); MONO # 0.6 x10^3/uL (0.0-1.1); MONO % 4 % (0-9); NEUT # 9.1 x10^3uL (1.8-7.7); NEUT % 65 % (31-73); PLATELET COUNT 305 x10^3/uL (140-400); RED BLOOD COUNT 4.18 x10^6/uL (3.50-5.40); RED CELL DISTRIBUTION WIDTH 12.5 % (11.5-14.5); WHITE BLOOD COUNT 14.1 x10^3/uL (4.0-11.0)
[2017-12-19 05:45] LABS: ALBUMIN 3.1 g/dL (3.4-5.0); ALBUMIN/GLOBULIN RATIO 0.8 (1.0-1.7); ALK PHOS 75 U/L (46-116); ALT (SGPT) 22 U/L (14-59); ANION GAP 13 (6-14); AST (SGOT) 12 U/L (15-37); BLOOD UREA NITROGEN 14 mg/dL (7-20); BUN/CREATININE RATIO 14 (6-20); CALCIUM 8.8 mg/dL (8.5-10.1); CARBON DIOXIDE 27 mmol/L (21-32); CHLORIDE 102 mmol/L (98-107); GFR 59.7; GLUCOSE 105 mg/dL (70-99); POTASSIUM 3.8 mmol/L (3.5-5.1); SODIUM 142 mmol/L (136-145); TOTAL BILIRUBIN 0.3 mg/dL (0.2-1.0); TOTAL PROTEIN 7.1 g/dL (6.4-8.2)
[2017-12-19] MEDS: REGADENOSON 0.4 MG/5 ML DISP.SYRIN. IV (09:39)
[2017-12-19] MEDS: rifAXIMin 550 MG TABLET PO (10:03)
== END 2017-12-19 14:35 | disposition home or self-care (01) | DRG 313 ==
LOC: ER 10:51 → 5 NORTH 15:44
DX: R07.9 Chest pain, unspecified (principal); Z82.49 Family history of ischemic heart disease and other diseases of the circulatory system; Z87.440 Personal history of urinary (tract) infections; Z87.730 Personal history of (corrected) cleft lip and palate; Z87.891 Personal history of nicotine dependence; Z90.710 Acquired absence of both cervix and uterus; Z88.2 Allergy status to sulfonamides
CPT/HCPCS: 36415; 71045; 71275; 78452; 80053; 80307; 83690; 83735; 83880; 84484; 85025; 93005; 93017; 93971; 96374; 96375; 96376; 99285-25; A9500; J2785; Q9967

== ENCOUNTER → 2018-01-01 | Outpatient (CLI) | payer OTHER | END | disposition home or self-care (01) | LOC: RAD 16:03 | DX: M50.322 Other cervical disc degeneration at C5-C6 level (principal); M50.323 Other cervical disc degeneration at C6-C7 level | CPT/HCPCS: 72050 ==

== ENCOUNTER → 2018-02-04 | Outpatient (CLI) | payer OTHER | END | disposition home or self-care (01) | LOC: KCIC MRI 08:29 | DX: G43.909 Migraine, unspecified, not intractable, without status migrainosus (principal) | CPT/HCPCS: 70551 ==

== ENCOUNTER → 2018-03-11 | Outpatient (CLI) | payer OTHER | END | disposition home or self-care (01) | LOC: MAMMO 12:59 | DX: R92.8 Other abnormal and inconclusive findings on diagnostic imaging of breast (principal) | CPT/HCPCS: 76641; 77066; G0279 ==

== ENCOUNTER → 2018-09-10 | Outpatient (CLI) | payer OTHER ==
[2017-12-19 11:00] VITALS: BP 109/61
[~2018-09-10] MED LIST changes: +ACET325T9 PO; +ASPI-612 PO; +ERGO500027 PO; +HYDR-3164 PO; +IBUP-1060 PO; +METH4TAB6 PO; +NITR0.4T SL; +RIFA550T4 PO
--- NOTE | 2018-09-10 15:56 | RAD ---
Indication: Six-month follow-up. TECHNIQUE: Grayscale and color Doppler images of the limited left breast. COMPARISON: Previous exam from 2017 FINDINGS: There is a hypoechoic was described skin lesion measuring 0.7 x 0.4 x 0.8 cm, previously 0.6 x 0.2 x 0.7 cm. There is a hypoechoic oval-shaped lesion with vascular described margins seen in the left retroareolar breast measuring 1.0 x 0.5 x 0.9 cm, previously 0.6 x 0.4 x 0.5 cm. No internal vascularity seen. The lesion is wider than taller. IMPRESSION: 1. Cutaneous lesion likely sebaceous cyst. 2. Slight interval increase in the size of left retroareolar lesion as described above. It is not entirely certain whether the lesion seen on today's exam corresponds to the lesion seen on previous exam. However no other lesions are seen in the retroareolar breast other than the one mentioned above. Follow-up ultrasound in 4-6 months recommended. BI-RADS 3: Probably benign. Follow-up ultrasound of the left retroareolar breast in 4-6 months. Electronically signed by: Jarod Perez DO (09/10/2018 3:52 PM) [facility]
== END | disposition home or self-care (01) ==
LOC: US 14:06
PROVIDERS: ATTEND Family Medicine
DX: N64.89 Other specified disorders of breast (principal)
CPT/HCPCS: 76641

== ENCOUNTER → 2019-03-15 | Outpatient (CLI) | payer OTHER ==
[2017-12-19 11:00] VITALS: BP 109/61
[~2019-03-15] MED LIST changes: +OMEP20CA10 PO; -OMEP20CA9 PO
--- NOTE | 2019-03-15 11:15 | RAD ---
DATE: 03/15/2019 EXAM: MAMMO CRISTINO SCREENING BILATERAL, BREAST LEFT HISTORY: Follow-up breast nodule COMPARISON: 03/11/2018 This study was interpreted with the benefit of Computerized Aided Detection (CAD). Breast Density: SCATTERED The breast parenchyma shows scattered fibroglandular densities. Breast parenchyma level B. FINDINGS: 2-D and 3-D tomosynthesis imaging was performed in CC and MLO projections. There is a superficial small nodule related to the skin in the anteromedial aspect of the left breast. This corresponds to an area of palpable concern on the previous study. This nodule has increased in size. No other new or enlarging breast densities are seen. No suspicious microcalcifications are evident. Left breast ultrasound, 03/15/2019: A targeted ultrasound exam of the left breast was performed in the areas of abnormality delineated on the 09/10/2018 exam. At the 8:00 location in the left breast approximately 2 cm from the nipple there is an oval-shaped hypoechoic mass involving the skin. There is no internal blood flow. It currently measures 10 x 8 x 6 mm compared to measurements of 7 x 4 x 8 mm on the previous study. The features are again most compatible with a sebaceous cyst. In the 4:00 retroareolar region there is a 4 x 5 x 3 mm hypoechoic nodule which appears to area of decreased slightly in size. It measures 6 x 5 x 4 mm on the previous study. Its margins are smooth. There is a suggestion of posterior acoustic enhancement. This is probably a complicated cyst. IMPRESSION: 1. The skin related nodule at the 8:00 location in the left breast has increased slightly in size. This again most likely represents a sebaceous cyst. Some other type of skin lesion cannot be excluded. Clinical surveillance is suggested. 2. Probable small left retroareolar cyst.. 3. Follow-up left breast ultrasound in 6 months and bilateral mammography at one year is suggested. BI-RADS CATEGORY: 3 PROBABLY BENIGN FINDING(S)-SHORT INTERVAL FOLLOW-UP SUGGESTED RECOMMENDED FOLLOW-UP: 6M 6 MONTH FOLLOW-UP PQRS compliance statement: Patient information was entered into a reminder system with a target due date for the next mammogram. Mammography is a sensitive method for finding small breast cancers, but it does not detect them all and is not a substitute for careful clinical examination. A negative mammogram does not negate a clinically suspicious finding and should not result in delay in biopsying a clinically suspicious abnormality. "Our facility is accredited by the [employer] Mammography Program."
== END | disposition home or self-care (01) ==
LOC: US 10:11
PROVIDERS: ATTEND Family Medicine
DX: Z12.31 Encounter for screening mammogram for malignant neoplasm of breast (principal); N63.24 Unspecified lump in the left breast, lower inner quadrant; N63.23 Unspecified lump in the left breast, lower outer quadrant
CPT/HCPCS: 76641; 77063; 77067

== ENCOUNTER → 2020-04-12 | Outpatient (CLI) | payer OTHER ==
[2019-08-13 15:32] VITALS: BP 120/71
[~2020-04-12] MED LIST changes: +HYDR-2761 PO; -NITR0.4T SL; +NITR0.4T24 SL; -OMEP20CA10 PO; +OMEP20CA16 PO; -TIZA4TAB PO; +TIZA4TAB2 PO
--- NOTE | 2020-04-12 17:32 | KCIC ---
3 view study of the right ankle Clinical indications: Pain and swelling since April 01, 2020. No known injury. FINDINGS: No acute fracture or dislocation or lytic process is evident. The mortise ankle joint is intact. Small plantar spur of the calcaneus is seen. IMPRESSION: No acute osseous abnormality. Electronically signed by: William Webb MD (04/12/2020 5:29 PM) [id number]
== END | disposition home or self-care (01) ==
LOC: KCIC 12:33
PROVIDERS: ATTEND Family Medicine
DX: M65.871 Other synovitis and tenosynovitis, right ankle and foot (principal); M77.31 Calcaneal spur, right foot
CPT/HCPCS: 73610

== ENCOUNTER → 2020-05-31 | Outpatient (CLI) | payer OTHER ==
[2019-08-13 15:32] VITALS: BP 120/71
[~2020-05-31] MED LIST changes: -ASPI-612 PO; +ASPI-886 PO
--- NOTE | 2020-05-31 08:33 | RAD ---
PROCEDURE: RENAL COMPLETE BILATERAL STUDY DATE: 05/31/2020 CLINICAL INDICATION / HISTORY: Reason: HEMORRHAGIC CYTITIS / Spl. Instructions: / History: . TECHNIQUE: Real time ultrasound of the retroperitoneum with freeze-frame imaging documentation was performed. COMPARISON: Abdomen pelvis CT without IV contrast of 06/30/2017. FINDINGS: Ultrasound evaluation demonstrates the kidneys are normal in size and shape with with appropriate echogenicity and cortical thickness. There is no mass, hydronephrosis, or demonstrable stone formation. The right kidney measures 11.0 x 4.5 x 5.2 cm and the left kidney measures 10.2 x 4.5 x 5.0 cm. The urinary bladder appears normal with a volume of 134 mL. The bladder emptied with a postvoid residual volume of 12 mL.. IMPRESSION: Small (11 mL) post void residual. Otherwise unremarkable retroperitoneal ultrasound focused on the kidneys and urinary bladder. Electronically signed by: Neeraj Rueda MD (05/31/2020 8:30 AM) [id number]
== END ==
LOC: US 07:08
PROVIDERS: ATTEND Family Medicine
DX: N30.91 Cystitis, unspecified with hematuria (principal)
CPT/HCPCS: 76770

== ENCOUNTER → 2020-07-07 | Outpatient (CLI) | payer OTHER ==
[2019-08-13 15:32] VITALS: BP 120/71
--- NOTE | 2020-07-07 10:41 | KCIC ---
EXAMINATION: LUMBAR SPINE MIN 4V CLINICAL HISTORY: Chronic right-sided low back pain TECHNIQUE: LUMBAR SPINE MIN 4V Number of Images/Views: 5 COMPARISON: None FINDINGS: Normal anatomic alignment. No acute fracture or spondylolisthesis. Disc spaces and vertebral body heights maintained. Mild to moderate facet arthropathy greatest in the mid to lower lumbar spine. SI joints maintained. Right upper quadrant surgical clips. IMPRESSION: [id number] facet arthropathy greatest in the mid to lower lumbar spine. Electronically signed by: Cruz Andrade DO (07/07/2020 10:38 AM) [id number]
== END ==
LOC: KCIC 09:27
PROVIDERS: ATTEND Family Medicine
DX: M47.816 Spondylosis without myelopathy or radiculopathy, lumbar region (principal); M54.31 Sciatica, right side
CPT/HCPCS: 72110

== ENCOUNTER 2020-12-02 13:19 | Emergency (ER) | payer OTHER ==
[~2020-12-02] VITALS: Ht 160 cm; Wt 98.0 kg
[2020-12-02 13:35] VITALS: BP 140/67
[2020-12-02] MEDS ORDERED: CLIN150C15 PO (14:11)
[2020-12-02] MEDS ORDERED: NAPR-514 PO (14:11)
--- NOTE | 2020-12-02 14:11 | ED.ADGEN ---
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 Smoking Status: Former Smoker Alcohol Use: None Drug Use: None General Adult EDM: Chief Complaint: DENTAL PROBLEM HPI: HPI: Patient is a 50 year old female who presents to the emergency department with complaints of bilateral lower dental pain and ulcerations to her lateral posterior gums bilaterally since yesterday. Patient reports a history of multiple dental caries, she reports she has an appointment on Friday to see a dentist for evaluation of her teeth. She reports that the dental pain has been ongoing intermittently for the last year. She denies any fever, cough, sore throat, ear pain, nausea, vomiting, diarrhea, body aches, fatigue, or headache. She denies any known exposure to COVID-19. Patient reports that she was diagnosed with COVID-19 in early September 2020. She currently rates her pain a 7 out of 10 on the pain scale, she denies taking anything for pain prior to arrival. She denies any alleviating factors, the pain increases with palpation. Review of Systems: Review of Systems: Complete ROS is negative unless otherwise noted in HPI. Allergies: Allergies: Allergies Coded Allergies Type Severity Reaction Last Updated Verified Sulfa (Sulfonamide Antibiotics) Allergy Intermediate 02/24/14 No Physical Exam: PE: See Above Constitutional: Well developed, well nourished, no acute distress, non-toxic appearance. [] HENT: Normocephalic, atraumatic, bilateral external ears normal, nose normal; diffuse dental decay of bilateral posterior lower jaw with multiple dental fra ctures, aphthous ulcers of bilateral lateral posterior mandibular gingiva, no visible dental abscess, diffuse gingival erythema [] Eyes: PERRLA, EOMI, conjunctiva normal, no discharge. [] Neck: Normal range of motion, no stridor. [] Cardiovascular:Heart rate regular rhythm Lungs & Thorax: Respirations even and unlabored, no retractions, no respiratory distress Skin: Warm, dry, no erythema, no rash. [] Extremities: No cyanosis, ROM intact, no edema. [] Neurologic: Alert and oriented X 3, no focal deficits noted. [] Psychologic: Affect normal, judgement normal, mood normal. [] Current Patient Data: Vital Signs: Vital Signs Date Time Temp Pulse Resp B/P (MAP) Pulse Ox O2 Delivery O2 Flow Rate FiO2 12/02/20 13:25 99.1 96 16 144/81 (102) 99 Room Air 99.1 EKG: EKG: [] Heart Score: C/O Chest Pain: No Risk Factors: Risk Factors: DM, Current or recent (<one month) smoker, HTN, HLP, family history of CAD, obesity. Risk Scores: Score 0 - 3: 2.5% MACE over next 6 weeks - Discharge Home Score 4 - 6: 20.3% MACE over next 6 weeks - Admit for Clinical Observation Score 7 - 10: 72.7% MACE over next 6 weeks - Early Invasive Strategies Radiology/Procedures: Radiology/Procedures: [] Course & Med Decision Making: Course & Med Decision Making Pertinent Labs and Imaging studies reviewed. (See chart for details) [] Dragon Disclaimer: Dragon Disclaimer: This electronic medical record was generated, in whole or in part, using a voice recognition dictation system. Departure Departure Impression: Primary Impression: Infected dental caries Additional Impressions: Oral aphthous ulcer Dentalgia Disposition: HOME SELF CARE/HOMELESS Condition: STABLE Referrals: Carolina RITCHIE MD (PCP) Patient Instructions: Dental Caries, Dental Pain, [id number], Oral Ulcers Additional Instructions: Fill prescription(s) and use as directed. Purchase some Maalox liquid and swish with it as instructed as needed for gum discomfort. Avoid carbonated, spicy, and acidic foods and beverages. Follow up with your dentist on Friday as planned. Return to the ER if symptoms worsen or fever develops. Scripts Naproxen (NAPROXEN) 500 Mg Tablet 1 TAB PO BID PRN for PAIN for 10 Days, #20 TAB 0 Refills Prov: DIANNA KNIGHT [employer]KEE[employer] 12/02/20 Clindamycin Hcl (CLINDAMYCIN HCL) 150 Mg Capsule 450 MG PO TID for 7 Days, #63 CAP 0 Refills Prov: DIANNA KNIGHT [employer] 12/02/20 Problem Qualifiers DIANNA KNIGHT APRN Dec 02, 2020 14:11
== END 2020-12-02 14:12 | disposition home or self-care (01) ==
LOC: ER 13:19
DX: K12.0 Recurrent oral aphthae (principal); K04.7 Periapical abscess without sinus; K08.89 Other specified disorders of teeth and supporting structures; Z87.891 Personal history of nicotine dependence; Z88.2 Allergy status to sulfonamides
CPT/HCPCS: 99283

== ENCOUNTER → 2021-01-12 | Outpatient (CLI) | payer OTHER ==
[~2021-01-12] MED LIST changes: +CLIN150C15 PO; +NAPR-514 PO
--- NOTE | 2021-01-12 17:24 | KCIC ---
XR ABDOMEN 2V INDICATION: CONSTIPATION. Chronic constipation, worsening. RUQ pain / History: . COMPARISON: None. FINDINGS: Nonobstructive bowel gas pattern. No free air. Large colonic stool burden Limited view of the lower chest demonstrates no acute abnormality. No acute osseous abnormality. Right upper quadrant surgical clips. IMPRESSION: Large colonic stool burden, consistent with patient's history of constipation Electronically signed by: Vitor Arriaza MD (01/12/2021 5:21 PM) [id number]
== END ==
LOC: KCIC 13:57
PROVIDERS: ATTEND Family Medicine
DX: K59.00 Constipation, unspecified (principal)
CPT/HCPCS: 74021

== ENCOUNTER 2021-10-17 13:59 | Emergency (ER) | payer OTHER ==
[~2021-10-17] VITALS: Ht 160 cm; Wt 91.9 kg
[~2021-10-17 13:59] MED LIST changes: -CLIN150C15 PO; +CLIN150C16 PO; +TIZA-75 PO; -TIZA4TAB2 PO
[2021-10-17 16:02] LABS: BILIRUBIN,URINE NEGATIVE (NEG); CLARITY,URINE CLEAR; COLOR,URINE YELLOW; NITRITE,URINE NEGATIVE (NEG); PROTEIN,URINE NEGATIVE (NEG-TRACE); UROBILINOGEN,URINE 0.2 mg/dL (0.2 mg/dL)
[2021-10-17 16:12] LABS: BACTERIA,URINE FEW /HPF (0-FEW); RBC,URINE 0 /HPF (0-2); WBC,URINE 0 /HPF (0-4)
--- NOTE | 2021-10-17 17:01 | RAD ---
XR CHEST 1V History: Reason: cough / Spl. Instructions: / History: Comparison: December 18, 2017 Findings: No consolidation or pleural effusion. Normal heart size. No pneumothorax. Impression: 1. No acute cardiopulmonary process. Electronically signed by: Marco Antonio Rivero DO (10/17/2021 4:58 PM) [id number]
--- NOTE | 2021-10-17 17:10 | PHYS DOC ---
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 Smoking Status: Never Smoker Alcohol Use: None Drug Use: None Adult General Chief Complaint Chief Complaint: headache HPI HPI Patient is a 51-year-old female who presents via POV to the ED with complaints of headache, and intermittent dry cough x3 days. She states that her mouth has been dry and that she has been very thirsty over the past few days. She has been drinking plenty of water, however she still feels like she is dehydrated. She called her PCP, Dr. Babb today, and he stated that if she felt dehydrated, that she may need IV fluids in the ER. She states that she took a COVID test on 10/01 and it was negative. She denies any nausea, vomiting, diarrhea, shortness of breath, chest pain, fever. She denies any fullness in he r sinuses, no ear pain, no nasal drainage, no sore throat, and no cervical lymphandenopathy. Review of Systems Review of Systems Constitutional: Denies fever or chills Eyes: Denies change in visual acuity HENT: Denies nasal congestion or sore throat Respiratory: Denies cough or shortness of breath Cardiovascular: Denies chest pain or edema GI: Generalized abdominal pain, nausea, vomiting. : Denies dysuria Musculoskeletal: Denies back pain or joint pain Integument: Denies rash or lesions Neurologic: Denies focal weakness or sensory changes Lymphatic: Denies swollen glands Current Medications Current Medications Current Medications Medications (Trade) Dose Ordered Sig/Zulma Start Time Stop Time Status Last Admin Dose Admin Ibuprofen (Motrin) 800 mg 1X ONCE 10/17/21 18:00 10/17/21 18:01 DC 10/17/21 18:13 800 MG Allergies Allergies Allergies Coded Allergies Type Severity Reaction Last Updated Verified Sulfa (Sulfonamide Antibiotics) Allergy Intermediate 02/24/14 No Physical Exam Physical Exam Constitutional: Well developed, well nourished, no acute distress, non-toxic appearance. [] HENT: Normocephalic, atraumatic, bilateral external ears normal, oropharynx moist, no oral exudates, nose normal. [] Eyes: PERRL, EOMI, conjunctiva normal, no discharge. [] Neck: Normal range of motion, no tenderness, supple, no stridor, no cervical lymphadenopathy[] Cardiovascular: Heart rate regular rhythm, no murmur [] Lungs & Thorax: Bilateral breath sounds clear to auscultation [] Abdomen: Bowel sounds normal, soft, no tenderness, no masses, no pulsatile masses. [] Skin: Warm, dry, no erythema, no rash. [] Back: No tenderness [] Extremities: No tenderness, no cyanosis, no clubbing, ROM intact, no edema. [] Neurologic: Alert and oriented X 3, normal motor function, normal sensory function, no focal deficits noted. [] Psychologic: Affect normal, judgement normal, mood normal. [] Current Patient Data Vital Signs Vital Signs Date Time Temp Pulse Resp B/P (MAP) Pulse Ox O2 Delivery O2 Flow Rate FiO2 10/17/21 18:14 98.1 80 20 97 98.1 10/17/21 15:45 132/71 (91) Room Air Lab Values Laboratory Tests Test 10/17/21 15:00 10/17/21 17:45 Urine Collection Type Unknown Urine Color Yellow Urine Clarity Clear Urine pH 6.0 (<5.0-8.0) Urine Specific [place] 1.010 (1.000-1.030) Urine Protein Negative mg/dL (NEG-TRACE) Urine Glucose (UA) Negative mg/dL (NEG) Urine Ketones (Stick) Negative mg/dL (NEG) Urine Blood Negative (NEG) Urine Nitrite Negative (NEG) Urine Bilirubin Negative (NEG) Urine Urobilinogen Dipstick 0.2 mg/dL (0.2 mg/dL) Urine Leukocyte Esterase Negative (NEG) Urine RBC 0 /HPF (0-2) Urine WBC 0 /HPF (0-4) Urine Squamous Epithelial Cells Few /LPF Urine Bacteria Few /HPF (0-FEW) Influenza Type A Antigen Negative (NEGATIVE) Influenza Type B Antigen Negative (NEGATIVE) SARS-CoV-2 Antigen (Rapid) Negative (NEGATIVE) EKG EKG [] Radiology/Procedures Radiology/Procedures [] Impressions: IMAGING REPORT Signed PATIENT: ARLETH GREEN ACCOUNT: [id number] : 1970 LOCATION: ER AGE: 51 SEX: F EXAM STATUS: REG ER ORD. PHYSICIAN: BRENDA RIVERO APRN REASON: cough PROCEDURE: CHEST AP ONLY XR CHEST 1V History: Reason: cough / Spl. Instructions: / History: Comparison: December 18, 2017 Findings: No consolidation or pleural effusion. Normal heart size. No pneumothorax. Impression: 1. No acute cardiopulmonary process. Electronically signed by: Marco Antonio Rivero DO (10/17/2021 4:58 PM) [id number] DICTATED and SIGNED BY: MARCO ANTONIO RIVERO DO DATE: 10/17/21 [id number] Course & Med Decision Making Course & Med Decision Making Patient is a 51-year-old female who presents to the ER with complaints of a headache, and dry intermittent cough over the last 3 days. She states that she was tested for COVID on 10/01 and it was negative. She reports feeling very thirsty and drinking a lot of water over the past several days, but states that she feels as though her mouth is still dry. She called her PCP who instructed her to come to the ED if she felt dehydrated. She states that this is not the worst headache of her life and there is no thunderclap onset. She denies nausea, vomiting, diarrhea, fever, shortness of breath, chest pain, sore throat, nasal drainage, or fullness in her sinuses. UA, influenza A and B, COVID, and chest x-ray ordered. Her UA was unremarkable and her chest x-ray showed nothing acute. Ibuprofen 800mg PO given to relieve headache. Influenza and COVID tests were both negative. I discussed with patient all findings and diagnostic testing as well as the need to follow-up with PCP for further evaluation and treatment or return to the ER if any new or worsening symptoms. Strict return precautions were also discussed at length. Patient voiced understanding and agreement with the plan. Patient is hemodynamically stable at the time of disposition. [] Dragon Disclaimer Dragon Disclaimer This electronic medical record was generated, in whole or in part, using a voice recognition dictation system. Departure Departure Impression: Primary Impression: Head ache Additional Impression: Cough Disposition: HOME / SELF CARE / HOMELESS Admitting Physician: Ethan Babb Condition: STABLE Referrals: Carolina BABB MD (PCP) Patient Instructions: Cough, Adult, General Headache Without Cause Additional Instructions: You were seen in the ER today for a headache and a dry cough. Your chest x-ray was negative and your influenza and COVID test were both negative. Your urinalysis was unremarkable. Please continue pushing oral fluids for hydration. You may take Ibuprofen or Tylenol as needed for your headache. You may take Tessalon Perles as needed for your dry, intermittent cough. You should return to the ED if you develop worsening symptoms, vision changes, numbness, tingling, weakness, vomiting, uncontrollable fever, neck pain, coughing up blood, increased shortness of breath, or any other new or concerning symptoms. Follow- up with Dr. Babb tomorrow for further evaluation and treatment Scripts Benzonatate (Benzonatate) 150 Mg Capsule 150 MG PO TID PRN PRN for COUGH, #20 CAP Prov: BRENDA RIVERO APRN 10/17/21 Problem Qualifiers Primary Impression: Head ache Headache type: unspecified Headache chronicity pattern: acute headache BRENDA RIVERO APRN Oct 17, 2021 17:10
[2021-10-17] MEDS ORDERED: IBUPROFEN 400 MG TABLET. PO ONE (18:00)
[2021-10-17 18:04] LABS: INFLUENZA A PATIENT NEGATIVE (NEGATIVE); INFLUENZA B PATIENT NEGATIVE (NEGATIVE)
[2021-10-17] MEDS ORDERED: BENZ150C3 PO (18:49)
[2021-10-17 18:52] VITALS: BP 105/79
== END 2021-10-17 19:08 | disposition home or self-care (01) ==
LOC: ER 13:59
DX: U07.1 COVID-19 (principal); R10.84 Generalized abdominal pain; Z90.49 Acquired absence of other specified parts of digestive tract; Z90.710 Acquired absence of both cervix and uterus; Z98.51 Tubal ligation status; Z88.2 Allergy status to sulfonamides
CPT/HCPCS: 71045; 81001; 87428; 99285; C9803; U0003

== ENCOUNTER → 2021-11-19 | Outpatient (CLI) | payer OTHER ==
[~2021-11-19] MED LIST changes: +BENZ150C3 PO
--- NOTE | 2021-11-19 12:10 | KCIC ---
EXAM: Chest, 2 views. HISTORY: Covid 19. Fatigue. Shortness of air. COMPARISON: 10/17/2021 FINDINGS: 2 views of chest are obtained. There is no infiltrate, pleural effusion or pneumothorax. Th e heart is normal in size. There is a small redundancy overlying the right upper lobe, likely overlyi ng the patient given the absence of a correlate on the recent comparison exam. IMPRESSION: No acute pulmonary finding. Electronically signed by: Kristina Avila MD (11/19/2021 12:07 PM) [id number]
== END ==
LOC: KCIC 11:42
PROVIDERS: ATTEND Family Medicine
DX: R06.02 Shortness of breath (principal); U09.9 Post COVID-19 condition, unspecified; R53.83 Other fatigue
CPT/HCPCS: 71046

== ENCOUNTER 2022-02-13 07:47 | Emergency (ER) | payer OTHER ==
[~2022-02-13] VITALS: Ht 160 cm; Wt 92.1 kg
[2022-02-13 07:54] VITALS: BP 149/75
[2022-02-13] MEDS ORDERED: KETOROLAC 15 MG/ML VIAL. IM ONE (08:15)
[2022-02-13 08:41] LABS: INFLUENZA A PATIENT NEGATIVE (NEGATIVE); INFLUENZA B PATIENT NEGATIVE (NEGATIVE)
--- NOTE | 2022-02-13 08:48 | RAD ---
XR CHEST 2V History: Cough Comparison: 11/19/2021, 10/17/2019 Technique: PA and lateral chest radiographs. Findings: The lungs are adequately and symmectrically inflated. No airspace consolidation, pleural effusion or pneumothorax. The cardiomediastinal silhoutte and pulmonary vasculature are within normal limits. Sof t tissues and osseous structures are unremarkable. Impression: 1. No acute cardiopulmonary process. Electronically signed by: Manas Vicente MD (02/13/2022 8:46 AM) [id number]
--- NOTE | 2022-02-13 09:05 | PHYS DOC ---
Past Medical History Past Medical History: Other Additional Past Medical Histor: fatty liver, vitamin D deficiency Past Surgical History: Cholecystectomy, Hysterectomy Additional Past Surgical Histo: Tubes in ears,several cleft palate surgeries, right ear sx with titanium Smoking Status: Never Smoker Alcohol Use: None Drug Use: None General Adult EDM: Chief Complaint: FLU SYMPTOM HPI: HPI: Patient is a 51 year old female presents with generalized malaise, cough, runny nose, congestion. Patient states that she has a history of ear infections. Otherwise she is doing well. Her vitals are within normal limits. Review of Systems: Review of Systems: Constitutional: Denies fever or chills. [] Eyes: Denies change in visual acuity. [] HENT: Positive nasal congestion and sore throat Respiratory: Positive cough, no shortness of breath Cardiovascular: Denies chest pain or edema. [] GI: Denies abdominal pain, nausea, vomiting, bloody stools or diarrhea. [] : Denies dysuria. [] Musculoskeletal: Denies back pain or joint pain. [] Integument: Denies rash. [] Neurologic: Positive headache, no focal weakness Endocrine: Denies polyuria or polydipsia. [] Lymphatic: Denies swollen glands. [] Psychiatric: Denies depression or anxiety. [] Heart Score: C/O Chest Pain: No Risk Factors: Risk Factors: DM, Current or recent (<one month) smoker, HTN, HLP, family history of CAD, obesity. Risk Scores: Score 0 - 3: 2.5% MACE over next 6 weeks - Discharge Home Score 4 - 6: 20.3% MACE over next 6 weeks - Admit for Clinical Observation Score 7 - 10: 72.7% MACE over next 6 weeks - Early Invasive Strategies Current Medications: Current Medications Medications (Trade) Dose Ordered Sig/Zulma Start Time Stop Time Status Last Admin Dose Admin Ketorolac Tromethamine (Toradol 15mg Vial) 15 mg 1X ONCE 02/13/22 08:15 02/13/22 08:16 DC 02/13/22 08:13 15 MG Allergies: Allergies: Allergies Coded Allergies Type Severity Reaction Last Updated Verified Sulfa (Sulfonamide Antibiotics) Allergy Intermediate 02/24/14 No Physical Exam: PE: Constitutional: Well developed, well nourished, no acute distress, non-toxic ap pearance. [] HENT: Normocephalic, atraumatic, bilateral external ears normal, oropharynx moist, no oral exudates, nose normal. [] Eyes: PERRLA, EOMI, conjunctiva normal, no discharge. [] Neck: Normal range of motion, no tenderness, supple, no stridor. [] Cardiovascular:Heart rate regular rhythm, no murmur [] Lungs & Thorax: Bilateral breath sounds clear to auscultation [] Abdomen: Bowel sounds normal, soft, no tenderness, no masses, no pulsatile masses. [] Skin: Warm, dry, no erythema, no rash. [] Back: No tenderness, no CVA tenderness. [] Extremities: No tenderness, no cyanosis, no clubbing, ROM intact, no edema. [] Neurologic: Alert and oriented X 3, normal motor function, normal sensory function, no focal deficits noted. [] Psychologic: Affect normal, judgement normal, mood normal. [] Current Patient Data: Labs: Laboratory Tests Test 02/13/22 08:00 Influenza Type A Antigen Negative (NEGATIVE) Influenza Type B Antigen Negative (NEGATIVE) SARS-CoV-2 Antigen (Rapid) Positive (NEGATIVE) *A Vital Signs: Vital Signs Date Time Temp Pulse Resp B/P (MAP) Pulse Ox O2 Delivery O2 Flow Rate FiO2 02/13/22 07:54 98.5 99 20 149/75 (99) 96 Room Air 98.5 EKG: EKG: [] Radiology/Procedures: Radiology/Procedures: Chest x-ray within normal limits Impression: COVID-19 infection Course & Med Decision Making: Course & Med Decision Making Pertinent Labs and Imaging studies reviewed. (See chart for details) 51-year-old female presents with COVID-like symptoms, positive for COVID. Chest x-ray within normal limits. Reviewed with patient. Patient will isolate at this time, patient will return to the emergency department if she is having any severe symptoms. Patient understood plan of action, agrees. All questions an swered. Discharged in hemodynamically stable condition. ER precautions given [employer] Disclaimer: Franck Disclaimer: This electronic medical record was generated, in whole or in part, using a voice recognition dictation system. Departure Departure Impression: Primary Impression: COVID-19 Disposition: 01 HOME / SELF CARE / HOMELESS Condition: GOOD Patient Instructions: Upper Respiratory Infection, Adult, [id number] Additional Instructions: Stay isolated for 10 days from the start of the illness Wear a mask at all times when you are near other humans You may use Tylenol and ibuprofen for your symptoms, drink plenty of fluids Return to the emergency department if you are feeling short of breath or having new or severe symptoms WILLIE ESPITIA MD February 13, 2022 09:05
== END 2022-02-13 09:10 | disposition home or self-care (01) ==
LOC: ER 07:47
DX: U07.1 COVID-19 (principal); Z20.822 Contact with and (suspected) exposure to COVID-19; Z88.2 Allergy status to sulfonamides
CPT/HCPCS: 71046; 87428; 96372; 99284; J1885